=== PATIENT | male | born 2000 | race Caucasian/White ===

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

== ENCOUNTER 2025-05-02 02:53 | Emergency (ER) | payer SELFPAY ==
[2025-05-02] VITALS (7 sets, daily range): BP systolic 134–162; BP diastolic 80–107; PULSE 56–101; RESP 16–18; TEMP 36.6–37; O2SAT 96–99; BMI 33.2
--- NOTE | 2025-05-02 02:59 | XR_ITS ---
PROCEDURE INFORMATION: Exam: XR Chest Exam date and time: 05/02/2025 2:55 AM Age: 25 years old Clinical indication: Other: Chest pain; Additional info: 2d cp TECHNIQUE: Imaging protocol: Radiologic exam of the chest. Views: 2 views. COMPARISON: No relevant prior studies available. FINDINGS: Lungs: Unremarkable. No consolidation. Pleural spaces: Unremarkable. No pleural effusion. No pneumothorax. Heart/Mediastinum: Unremarkable. No cardiomegaly. Bones/joints: Unremarkable. IMPRESSION: No acute findings.
--- NOTE | 2025-05-02 02:59 | ECG_ITS ---
APPROVED REPORT Exam: Resting ECG HR:77 bpm ECG Measurements Heart Rate 77 AXES VT 152 P 48 QRSd 91 QRS -4 QT 346 T 19 QTc 378 Conclusion SINUS RHYTHM VOLTAGE CRITERIA FOR LVH [MEETS CRITERIA IN ONE OF: R(aVL), S(V1), R(V5), R(V5/V6)+S(V1)] No STEMI Electronically signed by : LENY PASCUAL, 05/03/2025 02:54:57
--- NOTE | 2025-05-02 03:01 | HMH.EDGENADL ---
Discharge Plan Disposition Patient Disposition: Xfer Other Condition: Good Referrals Follow up/Referrals: Provider,MD Rhett [Primary Care Provider, Medical] - See instructions Clinical Impressions Clinical Impression: Suicidal ideations, Intentional ibuprofen overdose Stand Alone Forms Stand Alone Forms: Transfer Record - ED Print Language Print Language: Upper Sorbian Discharge ED Provider: Leesa High General Adult HPI <Leesa High MD - Last Filed: 05/02/25 06:56> General Chief complaint: Psychiatric Symptoms Stated complaint: SI Time Seen by Provider: 05/02/25 02:55 History of Present Illness HPI narrative: 25-year-old male who reports no history of previous inpatient psych treatment presents to the ER for suicidal ideation and attempt at self-harm. Patient reports recent break-up with his girlfriend and loss of a job. Patient reports he was feeling depressed and like he wanted to kill himself so he took 3 [id number] 200 mg ibuprofen. Patient reports this was all he took. He did have a few shots of alcohol prior to taking the ibuprofen. He is still having suicidal ideation and states he would take pills to kill himself. He does have a history of marijuana use most recently a few days ago. No history of IV drug use reported by the patient. He reports he is having some mild central chest pain but this has been going on for a few days. He has no headache or dizziness, no numbness, tingling, or weakness. No abdominal pain, nausea, vomiting, or diarrhea. No other associated symptoms. He is willing to seek inpatient psychiatry help. Related Data Allergies Allergy/AdvReac Type Severity Reaction Status Date / Time No Known Allergies Allergy Verified 05/02/25 03:20 [facility] <Leesa High MD - Last Filed: 05/02/25 06:56> [facility] Disclaimer: The information contained in this section may have been updated after the patient was seen, as this information can be updated by other users. Social History Smoking Status: Never smoker alcohol intake: current current occupational status: other Travel in the last 8 weeks?: None Have you lived/traveled outside [place] in past 30 days?: No Contact w/someone who lives/traveled outside US past 30 days?: No Exposure to someone with infectious disease in past 14 days?: No Do you have a fever (greater than 100.4 F or 38 C)?: No Have you tested positive for COVID-19?: No Exposed to someone with COVID-19 in past 14 days?: No Do you have a sore throat?: No Do you have a cough?: No Do you have any weakness?: No Do you have any diarrhea?: No Are you experiencing any unusual bleeding?: No Do you have any muscle aches/pain?: No Do you have any abdominal pain?: No Are you experiencing loss of taste or smell?: No <Leesa High MD - Last Filed: 05/02/25 06:56> ROS Obtained: Yes Systems reviewed as appropriate & no additional complaints except as documented Per HPI Physical Exam <Leesa High MD - Last Filed: 05/02/25 06:56> General General appearance: alert and in no apparent distress Head Head exam: atraumatic and normocephalic Eye Eye exam: Present PERRL and EOMI ENT ENT exam: Present mucous membranes moist Neck Neck exam: Present normal inspection and full ROM Chest Chest inspection: Present symmetric chest wall rise and tenderness (Mild midsternal with no traumatic finding) Respiratory Respiratory exam: Present normal lung sounds bilaterally; Absent respiratory distress, wheezes or stridor Cardiovascular Cardiovascular exam: Present regular rate and normal rhythm Abdominal Exam Abdominal exam: Present soft; Absent distention or tenderness Extremities Exam Extremities exam: Present full ROM Neurological Exam Neurological exam: Present alert and oriented X3; Absent motor sensory deficit Psychiatric Psychiatric exam: Present normal affect and suicidal ideation (With plan to take pills); Absent homicidal ideation Skin Skin exam: Present warm and dry Medical Decision Making <Leesa High MD - Last Filed: 05/02/25 06:56> Medical Records Medical records reviewed: Yes I reviewed the patient's medical records. Screening: Per USPSTF and CDC recommendations, given the prevalence of disease in our region, it is our hospital?s policy to screen for HIV and viral Hepatitis for all patients aged 18 and over and those with ongoing risk factors. Javier Inquiry Pt receiving controlled substance: No Vital Signs: 05/02/25 03:15 05/02/25 06:45 05/02/25 07:38 Temperature 98.6 F Temperature Source Oral Pulse Rate 57 L 71 Pulse Rate [Right] 86 Respiratory Rate 18 Blood Pressure 142/80 H 152/86 H Blood Pressure [Right Arm] 162/107 H Blood Pressure Mean [Right Arm] 125 02 Sat by Pulse Oximetry 96 97 97 Oxygen Delivery Method Room Air Room Air 05/02/25 09:42 Temperature Temperature Source Pulse Rate 56 L Pulse Rate [Right] Respiratory Rate Blood Pressure 135/92 H Blood Pressure [Right Arm] Blood Pressure Mean [Right Arm] 02 Sat by Pulse Oximetry 98 Oxygen Delivery Method Lab Data Lab Results 05/02/25 03:45: WBC 10.6, RBC 5.40, Hgb 15.9, Hct 46.6, MCV 86.3, MCH 29.4, MCHC 34.1, RDW 12.8, Plt Count 312, MPV 9.8, Neut % (Auto) 55.2, Lymph % (Auto) 32.6, Pendleton % (Auto) 10.7 H, Eos % (Auto) 0.5, Baso % (Auto) 0.6, Neut # (Auto) 5.9, Lymph # (Auto) 3.5, Pendleton # (Auto) 1.1 H, Eos # (Auto) 0.1, Baso # (Auto) 0.1, Sodium 140, Potassium 4.2, Chloride 107, Carbon Dioxide 25, Anion Gap 12.2, BUN 11, Creatinine 1.00, Estimated Creat Clear 181, Estimated GFR 93, Est GFR ( Amer) 112, Glucose 97, Calcium 9.2, Total Bilirubin 0.8, AST 152 H, ALT 383 H*, Alkaline Phosphatase 113, Troponin I < 0.01, Total Protein 8.1, Albumin 4.7, Globulin 3.4 H, Albumin/Globulin Ratio 1.4, Salicylates < 1.0 L, Acetaminophen < 10 L, Plasma/Serum Alcohol < 10, Monoscreen Negative 05/02/25 06:24: AST 122 H, ALT 325 H* 05/02/25 06:47: Total Creatine Kinase 103 05/02/25 07:34: Urine Color Yellow, Urine Appearance Clear, Urine pH 7.0, Ur Specific Dewey <= 1.005, Urine Protein Negative, Urine Glucose (UA) Negative, Urine Ketones Negative, Urine Blood 1+ A, Urine Nitrate Negative, Urine Bilirubin Negative, Urine Urobilinogen 1.0, Ur Leukocyte Esterase Negative, Urine RBC Occasional, Urine WBC None, Ur Squamous Epith Cells Occasional, Urine Bacteria Trace, Urine Opiates Screen Negative, Urine Methadone Screen Negative, Ur Barbituates Screen Negative, Ur Phencyclidine Scrn Negative, Ur Amphetamines Screen Negative, U Benzodiazepines Scrn Negative, Urine Cocaine Screen Negative, U Marijuana (THC) Screen Positive H 05/02/25 03:45 05/02/25 03:45 Orders (Tests/Meds): ED MEDICATIONS Generic Name Dose Route Start Last Admin Trade Name Freq PRN Reason Stop Dose Admin Sodium Chloride 10 ml 05/02/25 07:13 05/02/25 07:18 Sodium Chloride 0.9% 10ml Syr (Rad Only) IV 06/01/25 07:12 10 ml NEEDED PRN Administration Maintain IV Site Discontinued Medications Generic Name Dose Route Start Last Admin Trade Name Freq PRN Reason Stop Dose Admin Lactated Ringer's 1,000 mls @ 999 mls/hr 05/02/25 05:18 05/02/25 05:25 Lactated Ringer's 1000 Ml Bag IV 05/02/25 06:18 999 mls/hr .Q1H1M ONE Administration Iopamidol 75 ml 05/02/25 07:13 05/02/25 07:18 Iopamidol-370 (76%);100ml Bottle IV 05/02/25 07:14 75 ml ONCE ONE Administration ORDERS Category Date Time Status CT abdomen pelvis w con Stat Cat Scan 05/02/25 06:53 Completed CXR 2 view (NOT portable) [XR chest 2V] Stat Exams 05/02/25 02:59 Completed ALT [Alanine Aminotransferase] Timed Lab 05/02/25 06:24 Completed AST [Aspartate Amino Transferase] Timed Lab 05/02/25 06:24 Completed Acetaminophen Stat Lab 05/02/25 03:45 Completed CBC w/Auto Diff [Complete Blood Count Auto Diff] Stat Lab 05/02/25 03:45 Completed CK [Creatine Kinase] Stat Lab 05/02/25 06:47 Completed CMP [Comprehensive Metabolic Panel] Stat Lab 05/02/25 03:45 Completed Ethanol [Ethyl Alcohol] Stat Lab 05/02/25 03:45 Completed Hepatitis Panel Stat Lab 05/02/25 03:45 Received Monoscreen (Rapid) Stat Lab 05/02/25 03:45 Completed Salicylate Stat Lab 05/02/25 03:45 Completed Trop I [Troponin I] Stat Lab 05/02/25 03:45 Completed UDS [Drug Screen,Urine] Stat Lab 05/02/25 07:34 Completed Urinalysis and Microscopic Stat Lab 05/02/25 07:34 Completed Medical Decision Narrative: In summary, this 25-year-old male presents to the emergency department today with suicidal ideation, attempt at self-harm by taking 3 ibuprofen. On initial evaluation patient is hemodynamically stable, afebrile, well-appearing, patient is very mild anterior chest wall tenderness with no traumatic findings, cardiopulmonary exam benign, patient does report suicidal ideation with a plan to take pills, remainder of exam benign. Differential diagnosis includes but is not limited to depression, anxiety, suicidal ideation, self-harm attempt, coingestion, regarding the chest pain could be ACS, considered PE but patient is PERC negative, considered musculoskeletal etiology, esophageal spasm, pneumothorax. Ruling out the most morbid conditions drove my assessment. I considered calling poison control but patient reports only taking three 200 mg ibuprofen which would be a normal therapeutic dose for a patient of this age and size so without side effect or other concerns or report of coingestion at this time, will not contact poison control unless something otherwise concerning shows up on UDS or labs. Based on these concerns, I ordered serum labs, EKG, chest x-ray, urine studies including UDS. ECG personally interpreted demonstrates normal sinus rhythm, rate 77, normal axis, normal CT and QTc, no STEMI. Labs personally reviewed demonstrate no leukocytosis or anemia, normal platelets, CMP demonstrates no actionable electrolyte abnormalities, good kidney function, patient has elevated AST and notably elevated ALT. AST is 152, ALT is 383, alk phos normal. Patient has no hyperbilirubinemia, on reassessment I asked him specifically if he was having any abdominal pain and he states he occasionally has left-sided abdominal pain but has not had any in the last few days, he has no right sided abdominal pain, I reexamined his abdomen again and he has no tenderness, rebound, or guarding. No jaundice. I do not believe patient requires any advanced imaging at this time but I do not have a specific reason for his liver enzyme elevation. This is not in the typical pattern of alcohol abuse either and patient reports only drinking a couple shots of liquor on the weekends which is what he reports doing prior to arrival. Salicylates and acetaminophen levels are undetectable which is also reassuring. He states he does not take Tylenol. I discussed this case with Dr. Cueva at regarding patient's abnormal LFTs without other associated symptoms or abnormalities and my concern that this would exclude him from being able to go to inpatient psych. He recommended giving the patient a liter of IV fluids and rechecking LFTs in 2 hours. IV fluids are being administered, recheck LFT has been ordered. He recommends if LFTs remain elevated to then have right upper quadrant ultrasound or CT imaging performed to evaluate for other cause. If all of these are negative then should be able to be cleared for inpatient psych. Repeat LFTs are still elevated, specifically AST is 325. With this elevation I ordered CT abdomen pelvis to rule out other acute intra-abdominal pathologies that could be contributing though he still has a benign exam. Patient handed off to Dr. Cordova in stable condition pending CT imaging for disposition. <Juan Cordova, DO - Last Filed: 05/02/25 11:15> Vital Signs: 05/02/25 03:15 05/02/25 06:45 05/02/25 07:38 Temperature 98.6 F Temperature Source Oral Pulse Rate 57 L 71 Pulse Rate [Right] 86 Respiratory Rate 18 Blood Pressure 142/80 H 152/86 H Blood Pressure [Right Arm] 162/107 H Blood Pressure Mean [Right Arm] 125 02 Sat by Pulse Oximetry 96 97 97 Oxygen Delivery Method Room Air Room Air 05/02/25 09:42 Temperature Temperature Source Pulse Rate 56 L Pulse Rate [Right] Respiratory Rate Blood Pressure 135/92 H Blood Pressure [Right Arm] Blood Pressure Mean [Right Arm] 02 Sat by Pulse Oximetry 98 Oxygen Delivery Method Lab Data Lab Results 05/02/25 03:45: WBC 10.6, RBC 5.40, Hgb 15.9, Hct 46.6, MCV 86.3, MCH 29.4, MCHC 34.1, RDW 12.8, Plt Count 312, MPV 9.8, Neut % (Auto) 55.2, Lymph % (Auto) 32.6, Pendleton % (Auto) 10.7 H, Eos % (Auto) 0.5, Baso % (Auto) 0.6, Neut # (Auto) 5.9, Lymph # (Auto) 3.5, Pendleton # (Auto) 1.1 H, Eos # (Auto) 0.1, Baso # (Auto) 0.1, Sodium 140, Potassium 4.2, Chloride 107, Carbon Dioxide 25, Anion Gap 12.2, BUN 11, Creatinine 1.00, Estimated Creat Clear 181, Estimated GFR 93, Est GFR ( Amer) 112, Glucose 97, Calcium 9.2, Total Bilirubin 0.8, AST 152 H, ALT 383 H*, Alkaline Phosphatase 113, Troponin I < 0.01, Total Protein 8.1, Albumin 4.7, Globulin 3.4 H, Albumin/Globulin Ratio 1.4, Salicylates < 1.0 L, Acetaminophen < 10 L, Plasma/Serum Alcohol < 10, Monoscreen Negative 05/02/25 06:24: AST 122 H, ALT 325 H* 05/02/25 06:47: Total Creatine Kinase 103 05/02/25 07:34: Urine Color Yellow, Urine Appearance Clear, Urine pH 7.0, Ur Specific Dewey <= 1.005, Urine Protein Negative, Urine Glucose (UA) Negative, Urine Ketones Negative, Urine Blood 1+ A, Urine Nitrate Negative, Urine Bilirubin Negative, Urine Urobilinogen 1.0, Ur Leukocyte Esterase Negative, Urine RBC Occasional, Urine WBC None, Ur Squamous Epith Cells Occasional, Urine Bacteria Trace, Urine Opiates Screen Negative, Urine Methadone Screen Negative, Ur Barbituates Screen Negative, Ur Phencyclidine Scrn Negative, Ur Amphetamines Screen Negative, U Benzodiazepines Scrn Negative, Urine Cocaine Screen Negative, U Marijuana (THC) Screen Positive H Orders (Tests/Meds): ED MEDICATIONS Generic Name Dose Route Start Last Admin Trade Name Freq PRN Reason Stop Dose Admin Sodium Chloride 10 ml 05/02/25 07:13 05/02/25 07:18 Sodium Chloride 0.9% 10ml Syr (Rad Only) IV 06/01/25 07:12 10 ml NEEDED PRN Administration Maintain IV Site Discontinued Medications Generic Name Dose Route Start Last Admin Trade Name Freq PRN Reason Stop Dose Admin Lactated Ringer's 1,000 mls @ 999 mls/hr 05/02/25 05:18 05/02/25 05:25 Lactated Ringer's 1000 Ml Bag IV 05/02/25 06:18 999 mls/hr .Q1H1M ONE Administration Iopamidol 75 ml 05/02/25 07:13 05/02/25 07:18 Iopamidol-370 (76%);100ml Bottle IV 05/02/25 07:14 75 ml ONCE ONE Administration ORDERS Category Date Time Status CT abdomen pelvis w con Stat Cat Scan 05/02/25 06:53 Completed CXR 2 view (NOT portable) [XR chest 2V] Stat Exams 05/02/25 02:59 Completed ALT [Alanine Aminotransferase] Timed Lab 05/02/25 06:24 Completed AST [Aspartate Amino Transferase] Timed Lab 05/02/25 06:24 Completed Acetaminophen Stat Lab 05/02/25 03:45 Completed CBC w/Auto Diff [Complete Blood Count Auto Diff] Stat Lab 05/02/25 03:45 Completed CK [Creatine Kinase] Stat Lab 05/02/25 06:47 Completed CMP [Comprehensive Metabolic Panel] Stat Lab 05/02/25 03:45 Completed Ethanol [Ethyl Alcohol] Stat Lab 05/02/25 03:45 Completed Hepatitis Panel Stat Lab 05/02/25 03:45 Received Monoscreen (Rapid) Stat Lab 05/02/25 03:45 Completed Salicylate Stat Lab 05/02/25 03:45 Completed Trop I [Troponin I] Stat Lab 05/02/25 03:45 Completed UDS [Drug Screen,Urine] Stat Lab 05/02/25 07:34 Completed Urinalysis and Microscopic Stat Lab 05/02/25 07:34 Completed Medical Decision Narrative: In summary, this 25-year-old male presents to the emergency department today with suicidal ideation, attempt at self-harm by taking 3 ibuprofen. On initial evaluation patient is hemodynamically stable, afebrile, well-appearing, patient is very mild anterior chest wall tenderness with no traumatic findings, cardiopulmonary exam benign, patient does report suicidal ideation with a plan to take pills, remainder of exam benign. Differential diagnosis includes but is not limited to depression, anxiety, suicidal ideation, self-harm attempt, coingestion, regarding the chest pain could be ACS, considered PE but patient is PERC negative, considered musculoskeletal etiology, esophageal spasm, pneumothorax. Ruling out the most morbid conditions drove my assessment. I considered calling poison control but patient reports only taking three 200 mg ibuprofen which would be a normal therapeutic dose for a patient of this age and size so without side effect or other concerns or report of coingestion at this time, will not contact poison control unless something otherwise concerning shows up on UDS or labs. Based on these concerns, I ordered serum labs, EKG, chest x-ray, urine studies including UDS. ECG personally interpreted demonstrates normal sinus rhythm, rate 77, normal axis, normal CT and QTc, no STEMI. Labs personally reviewed demonstrate no leukocytosis or anemia, normal platelets, CMP demonstrates no actionable electrolyte abnormalities, good kidney function, patient has elevated AST and notably elevated ALT. AST is 152, ALT is 383, alk phos normal. Patient has no hyperbilirubinemia, on reassessment I asked him specifically if he was having any abdominal pain and he states he occasionally has left-sided abdominal pain but has not had any in the last few days, he has no right sided abdominal pain, I reexamined his abdomen again and he has no tenderness, rebound, or guarding. No jaundice. I do not believe patient requires any advanced imaging at this time but I do not have a specific reason for his liver enzyme elevation. This is not in the typical pattern of alcohol abuse either and patient reports only drinking a couple shots of liquor on the weekends which is what he reports doing prior to arrival. Salicylates and acetaminophen levels are undetectable which is also reassuring. He states he does not take Tylenol. I discussed this case with Dr. Cueva at regarding patient's abnormal LFTs without other associated symptoms or abnormalities and my concern that this would exclude him from being able to go to inpatient psych. He recommended giving the patient a liter of IV fluids and rechecking LFTs in 2 hours. IV fluids are being administered, recheck LFT has been ordered. He recommends if LFTs remain elevated to then have right upper quadrant ultrasound or CT imaging performed to evaluate for other cause. If all of these are negative then should be able to be cleared for inpatient psych. Repeat LFTs are still elevated, specifically ALT is 325. With this elevation I ordered CT abdomen pelvis to rule out other acute intra-abdominal pathologies that could be contributing though he still has a benign exam. Patient handed off to Dr. Cordova in stable condition pending CT imaging for disposition. Juan Cordova DO At the time of shift change this patient's CT scan was pending. The patient does not report any toxic ingestions that would cause a transaminitis. His Tylenol level is also normal so this would also not account for his transaminitis. We had spoken with the concrete craftsman at [facility], Dr. Cueva, who felt that it would be best to proceed with a CT scan of the abdomen pelvis. We also felt that this was reasonable. I followed up on the CT scan of the abdomen pelvis and it showed no acute pathology. It did show that there is fatty infiltration of the liver which fits clinically with the patient's abdominal obesity. I do feel that this likely is accounting for his transaminitis although, I do not have any prior blood work to compare this to to see if this is a chronic issue. I would favor fatty liver disease over a toxic ingestion at this time as he seems pretty reliable that he only took 3 pills of ibuprofen. Given these findings I do feel that he is medically cleared and stable for psychiatric care. I had an interactive discussion with the [facility] who graciously agreed to accept the patient for transfer to [facility]. Dr. Hernandez is the accepting physician. Patient was transferred in stable condition via EMS Critical Care <Leesa High MD - Last Filed: 05/02/25 06:56> Critical Care Time Critical Care Time: No
--- OUTSIDE RECORDS SUMMARY | 2025-05-02 03:09 | XMS_ITS | Clinical Summary ---
Author Organization [facility] Address [address] 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 16.5 g 0 Active Additional Information Patient not taking.Reason: Therapy Completed, Informant: Self/Patient, Reported on 04/04/2024 cetirizine (ZYRTEC) 10 mg Oral Tablet, ChewableIndicat ions:Epistaxis Take 1 Tab by mouth daily. 30 Tab 0 Active Additional Information Patient not taking.Reason: Therapy Completed, Informant: Self/Patient, Reported on 04/04/2024 Active Problems Problem Noted Date Diagnosed Date Seasonal allergies 06/04/2013 Immunizations Immunization Administration Dates Next Due DTaP 03/11/2006, 3,2002,06/15,2002 HPV 9 Valent 12/16/2018,05/22/2018 Hepatitis A, Ped/Adol, 2 Dose 12/16/2018, 018 Hepatitis B, Unspecified Formulation 03/25/2003, 2002,2002 HiB, Unspecified Formulation 03/25/2003,06/15/20 02,2002 IPV 03/11/2006, 3,2002,03/16 LAST MANUFACTURED 2011-Pneum ococcal Conjugate 7 Valent 03/11/2006 MMR 03/11/2006,05/27/2003 Meningococcal Conjugate 05/14/2018,05/12/2013 Meningococcal MCV4, Unspecif ied Formulation 05/12/2013 Tdap 07/10/2013 Varicella 05/12/2013,05/27/2003 Surgical History Surgery Date Site/Laterality Comments CIRCUMCISION Medical History Medical History Date Comments Seasonal allergies Bleeding nose Family History Medical History Relation Name Comments Hypertension Father Diabetes Maternal Grandfather Elevated Lipids Maternal Grandfather Hypertension Maternal Grandfather Allergies Mother Heart Disease Mother arrthymia Diabetes Paternal Grandfather Elevated Lipids Paternal Grandfather Hypertension Paternal Grandfather Relation Name Status Comments Father Alive Maternal Grandfather Alive Maternal Grandmother Alive Mother Alive Paternal Grandfather Alive Paternal Grandmother Alive Sister 1 Alive Sister 2 Alive Social History Tobacco Use Types Packs/Day Years Used Date Smoking Tobacco: Never Smokeless Tobacco: Never Tobacco Cessation:Counseling Given: Not Answered Comments:Mom smokes inside Alcohol Use Standard Drinks/Week Comments No 0 (1 standard drink = 0.6 oz pur e alcohol) PHQ-2 Answer Date Recorded PHQ-2 Total Score 0 06/20/2021 Sexually Active Control Partners Comments Never Sex and Gender Information Value Date Recorded Sex Assigned at Not on file Legal Sex Male 3:31 AM EDT Gender Identity Not on file Sexual Orientation Not on file History Length Weight Head Circum Date/Time Gestation Age D/C Weight APGARs Delivery Method Feeding 2002 Vaginal, Spontaneous Obstetrics History Last Filed Vital Signs Vital Sign Reading Time Taken Comments Blood Pressure 128/74 04/04/2024 5:21 PM EDT Pulse 102 04/04/2024 5:21 PM EDT Temperature 36.7 C (98.1 F) 04/04/2024 5:21 PM EDT Respiratory Rate 14 04/04/2024 5:21 PM EDT Oxygen Saturation 99% 04/04/2024 5:21 PM EDT Inhaled Oxygen Concentration - - Weight 111.7 kg (246 lb 3.2 oz) 04/04/2024 5:21 PM EDT Height 180.3 cm (5' 11 ) 04/04/2024 5:21 PM EDT Body Mass Index 34.34 04/04/2024 5:21 PM EDT Plan of Treatment Health Maintenance Due Date Last Done Comments Annual Wellness Exam 2005 Meningococcal B Vaccine (1 of 2 - Standard) 2018 HPV (3 - Male 3-dose series) 03/10/2019 12/16/2018, 05/22/2018 DTaP/TDaP/Td (7 - Td or Tdap) 07/10/2023 07/10/2013, 03/11/2006, 03/25/2003, Additional history exists COVID-19 Vaccine ( season) 2024 Influenza Vaccine (#1) 2025 Hepatitis B Vaccine Completed 03/25/2003, 2002, 2002 Pneumococcal Vaccine 0-49 Aged Out 03/11/2006 No longer eligible based on patient's age to complete this topic Goals Goal Patient Goal Type Associated Problems Recent Progress Patient-Stated? 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
--- NOTE | 2025-05-02 03:48 | PC.NURSE ---
PT changed into plastic gown. Belongings put into bag, Shorts, Shirt, 2 socks, phone, wallet.
[2025-05-02 03:52] LABS: Hematocrit 46.6 % (42.0-52.0); Hemoglobin 15.9 g/dL (14.1-18.0); Immature Granulocytes % 0.4 %; Mean Corpuscular HGB Conc 34.1 g/dL (31.8-35.4); Mean Corpuscular Hemoglobin 29.4 pg (27.0-31.2); Mean Corpuscular Volume 86.3 fl (80-94); Nucleated Red Blood Cells % 0 %; Platelet Count 312 K/mm3 (142-424); Red Blood Count 5.40 M/mm3 (4.60-6.20); Red Cell Distribution Width-SD 39.8 fL; White Blood Count 10.6 K/mm3 (4.8-10.8)
[2025-05-02 03:57] LABS: Albumin Level 4.7 g/dl (3.5-5.0); Chloride 107 mmol/L (98-107); Sodium 140 mmol/L (136-145)
[2025-05-02 03:58] LABS: Potassium 4.2 mmoL/L (3.5-5.1)
[2025-05-02 04:00] LABS: Alanine Aminotransferase 383 U/L (12-78); Albumin/Globulin Ratio 1.4 (1.1-1.8); Alkaline Phosphatase 113 U/L (38-126); Anion Gap 12.2 mEq/L (5-15); Aspartate Amino Transferase 152 U/L (17-59); Bilirubin,Total 0.8 mg/dl (0.2-1.3); Blood Urea Nitrogen 11 mg/dl (9-20); Carbon Dioxide 25 mmol/L (22.0-30.0); Creatinine Clearance Estimated 181 mL/min (50-200); Creatinine,Serum 1.00 mg/dl (0.66-1.25); Estimated Glomerular Filt Rate 93 ml/min (>60); GFR (African American) 112 ML/MIN (>60); Globulin 3.4 g/dL (1.3-3.2); Total Protein,Serum 8.1 g/dl (6.3-8.2)
[2025-05-02 04:01] LABS: Calcium 9.2 mg/dl (8.4-10.2); Glucose 97 mg/dl (74-100)
[2025-05-02 04:03] LABS: Acetaminophen < 10 ug/ml (10-30); Salicylate < 1.0 mg/dL (2.0-20.0)
[2025-05-02 04:13] LABS: Troponin I < 0.01 ng/ml (0.00-0.034)
--- NOTE | 2025-05-02 05:01 | PC.NURSE ---
PT provided urinal and notified of UA needed. Unable to provide sample at this time.
[2025-05-02] MEDS: LACTATED RINGERS 1000ML 1,000 ML 999 ML IV (05:25)
[2025-05-02 06:44] LABS: Alanine Aminotransferase 325 U/L (12-78); Aspartate Amino Transferase 122 U/L (17-59)
--- NOTE | 2025-05-02 06:53 | CT_ITS ---
PROCEDURE INFORMATION: Exam: CT Abdomen And Pelvis With Contrast Exam date and time: 05/02/2025 7:09 AM Age: 25 years old Clinical indication: Abnormal findings; Abnormal lab test; Other: Elevated lfts without cause TECHNIQUE: Imaging protocol: Computed tomography of the abdomen and pelvis with contrast. Radiation optimization: All CT scans at this facility use at least one of these dose optimization techniques: automated exposure control; mA and/or kV adjustment per patient size (includes targeted exams where dose is matched to clinical indication); or iterative reconstruction. Contrast material: ISOVUE; Contrast volume: 75 ml; Contrast route: IV; COMPARISON: CR XR CHEST 2V 05/02/2025 2:55 AM FINDINGS: Liver: Fatty infiltration of the liver. Gallbladder and biliary ducts: Normal. No calcified stones. No ductal dilation. Pancreas: Normal. No ductal dilation. Spleen: Normal. No splenomegaly. Adrenal glands: Normal. No mass. Kidneys and ureters: Normal. No hydronephrosis. Stomach and bowel: Unremarkable. No obstruction. No mucosal thickening. Appendix: No evidence of appendicitis. Intraperitoneal space: Unremarkable. No free air. No significant fluid collection. Vasculature: Unremarkable. No abdominal aortic aneurysm. Lymph nodes: Unremarkable. No enlarged lymph nodes. Urinary bladder: Unremarkable as visualized. Reproductive: Unremarkable as visualized. Bones/joints: Unremarkable. No acute fracture. Soft tissues: Gynecomastia. IMPRESSION: 1. Fatty infiltration of the liver. 2. Gynecomastia.
[2025-05-02 07:05] LABS: Monoscreen (Rapid) Negative (Negative)
[2025-05-02 07:12] LABS: Creatine Kinase 103 U/L (55-170)
[2025-05-02] MEDS: SODIUM CHLORIDE 0.9% 10ML SYR (RAD ONLY) 10 ML IV (07:18)
[2025-05-02] MEDS: IOPAMIDOL-370 (76%);100ML BOTTLE 75 ML IV (07:18)
[2025-05-02 07:39] LABS: Microscopic, Urine URINE MICROSCOPIC (MICROSCOPIC)
[2025-05-02 07:44] LABS: Bilirubin,Urine Negative (Negative); Color,Urine YELLOW (Yellow); Glucose,Urine (UA) Negative (Negative); Ketones,Urine Negative (Negative); Leukocyte Esterase,Urine Negative (Negative); PH,Urine 7.0 (5.0-8.5); Protein,Urine Negative (Negative); Specific Gravity, Urine <= 1.005 (1.005-1.030); Urobilinogen,Urine 1.0 EU/dl (0.2)
[2025-05-02 07:53] LABS: Bacteria,Urine Trace /lpf; RBC,Urine Occasional #/hpf (0-3); Squamous Epithelial Cell,Urine Occasional #/hpf (0-5)
[2025-05-02 07:56] LABS: Amphetamine/Metha Screen,Urine Negative ng/ml (<1000)
[2025-05-02 07:57] LABS: Barbiturates Screen,Urine Negative ng/ml (<200)
[2025-05-02 07:58] LABS: Benzodiazepines Screen,Urine Negative ng/ml (<200)
[2025-05-02 07:59] LABS: Methadone Screen,Urine Negative ng/ml (<300)
[2025-05-02 08:00] LABS: Opiate Screen,Urine Negative ng/ml (<300)
[2025-05-02 08:01] LABS: Phencyclidine Screen,Urine Negative ng/ml (<25)
--- NOTE | 2025-05-02 09:06 | PC.NURSE ---
Asked patient if he needed naything he stated that he was okay at this time.
--- NOTE | 2025-05-02 09:23 | PC.NURSE ---
I called and spoke with transfer center for pts transfer for suicide ideation. casino shift manager started the process for pt, but requested repeat labs. Those were performed. MD lee on phone with dr cook from
--- NOTE | 2025-05-02 09:54 | PC.NURSE ---
report given to michael cheema at [facility] at
--- NOTE | 2025-05-02 09:58 | PC.NURSE ---
attempted to call EMS for transfer to [facility]. No one answered. will attempted to call back later.
--- NOTE | 2025-05-02 10:01 | PC.NURSE ---
Patient asked if he could have his phone to call and let his parents know that he was here and what was going on. I told him that i would ask. Adrianna Montiel RN stated that she didnt care if he had his phone to call his parents. I got in his patient belongings bag and grabbed his phone for him which ended up being . it is on the radiation protection specialist out at the desk right now and once it charges RN Adrianna Montiel will bring it back for him to call.
== END 2025-05-02 13:20 | disposition other institution (70) ==
PROVIDERS: Student in an Organized Health Care Education/Training Program; Emergency Provider Emergency Medicine
DX: T39.312A Poisoning by propionic acid derivatives, intentional self-harm, initial encounter (principal); R07.89 Other chest pain
CPT/HCPCS: 71046; 74177; 80053; 80074; 80307; 80320; 80329; 81001; 82550; 84450; 84460; 84484; 85025; 86318; 93005; 96360; 99285; J7120; Q9967

== ENCOUNTER 2025-05-09 02:27 | Emergency (ER) | payer SELFPAY ==
--- OUTSIDE RECORDS SUMMARY | 2025-05-02 14:14 | XMS_ITS | Encounter Summary ---
Author Organization Healthcare Address [address] 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 Phone Pcp, No Primary Care Provider Unavailabl e Reason for Visit * Reason Comments Depression Anxiety Encounter Details Date Type Department Care Team (Latest Contact Info) Description 05/02/2025 2:14 PM EDT - 05/03/2025 1:02 PM EDT Hospital Encounter [facility] [address] [place] [address] Krunal Broderick MD [address] [place] [address] Adjustment disorder, unspecified type (Primary Dx) Discharge Disposition: Home or Self Care Social History Tobacco Use Types Packs/Day Years Used Date Smoking Tobacco: Never Smokeless Tobacco: Never Tobacco Cessation:Counseling Given: Not Answered Alcohol Use Standard Drinks/Week Comments Yes 0 (1 standard drink = 0.6 oz pure alcohol) weekends, 3-5 shots over the entire weekend, and sometimes 1/2 - 1 bottle vodka as a binge event over a weekend, maybe once monthly. PHQ-2 Answer Date Recorded Patient Health Questionnaire-2 Score 4 05/02/2025 PHQ-9 Answer Date Recorded Patient Health Questionnaire-9 Score 18 05/02/2025 CAGE ASSESSMENT Answer Date Recorded Cage unable to access Not on file 05/02/2025 Maximum number of drinks you had on a given occasion in the last month? 5 or more drinks 05/02/2025 How many alcoholic Beverages do you typically drink in a week? 8 - 14 per week 05/02/2025 Have you ever felt you shoul d CUT down on your drinking? 1 05/02/2025 Have you been ANNOYED by peo ple criticizing your drinking? 0 05/02/2025 Have you felt GUILTY about your drinking? 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 0 05/02/2025 CAGE Questionnaire Score 2 Sex and Gender Information Value Date Recorded Sex Assigned at Not on file Legal Sex Male 5:10 AM EDT Gender Identity Not on file Sexual Orientation Not on file documented as of this encounter Last Filed Vital Signs Vital Sign Reading Time Taken Comments Blood Pressure 152/98 05/02/2025 2:20 PM EDT Pulse 69 05/02/2025 2:20 PM EDT Temperature - - Respiratory Rate 20 05/02/2025 6:44 PM EDT Oxygen Saturation 97% 05/02/2025 2:20 PM EDT Inhaled Oxygen Concentration - - Weight 120 kg (264 lb 8.8 oz) 05/02/2025 3:00 PM EDT Height 182.9 cm (6') 05/02/2025 3:00 PM EDT Body Mass Index 35.88 05/02/2025 3:00 PM EDT documented in this encounter Functional Status * Over the past 2 weeks, how often have you been bothered by any of the following problems? Question Answer Date of Assessment Author Patient Health Questionnaire -2 Score 4 05/02/2025 2:40 PM EDT Radha Navas * Calculated C-SSRS Risk Score (Lifetime/Recent) Answer Date of Assessment Author Low Risk 05/02/2025 3:23 PM EDT Rogers sOorio RN * If you checked off any problems on this questionnaire, Question Answer Date of Assessment Author How difficult have these problems made it for you to do your work, take care of things at home, or get along with other people? Very difficult 05/02/2025 2:40 PM EDT Radha Navas * Suicidal Ideation Question Answer Date of Assessment Author 1. Wish to be (Lifetime) Yes 05/02/2025 3:23 PM EDT Evelin Osorio, RN 2. Non-Specific Active Suici arabella Thoughts (Lifetime) Yes 05/02/2025 3:23 PM EDT Evelin Osorio RN 3. Active Suicidal Ideation with any Methods (Not Plan) Without Intent to Act (Lifetime) No 05/02/2025 3:23 PM EDT Jer Osorio RN 4. Active Suicidal Ideation with Some Intent to Act, Without Specific Plan (Lifetime) No 05/02/2025 3:23 PM EDT Jer Osorio RN 5. Active Suicidal Ideation with Specific Plan and Intent (Lifetime) No 05/02/2025 3:23 PM EDT Evelin Osorio RN 1. Wish to be (Past 1 Month) Yes 05/02/2025 3:23 PM EDT Evelin Osorio RN 2. Non-Specific Active Suici arabella Thoughts (Past 1 Month) Yes 05/02/2025 3:23 PM EDT Alton Osorio RN 3. Active Suicidal Ideation with any Methods (Not Plan) Without Intent to Act (Past 1 Month) No 05/02/2025 3:23 PM EDT Evelin Osorio RN 4. Active Suicidal Ideation with Some Intent to Act, Without Specific Plan (Past 1 Month) No 05/02/2025 3:23 PM EDT Evelin Osorio RN 5. Active Suicidal Ideation with Specific Plan and Intent (Past 1 Month) No 05/02/2025 3:23 PM EDT Evelin Osorio RN * Intensity of Ideation Question Answer Date of Assessment Author Most Severe Ideation Rating (Lifetime) 5 05/02/2025 3:23 PM EDELT Evelin Osorio RN Frequency (Lifetime) 5 05/02/2025 3:23 PM E DT Evelin Osorio RN Duration (Lifetime) 3 05/02/2025 3:23 PM ED T Evelin Osorio RN Controllability (Lifetime) 5 05/02/2025 3:2 3 PM EDT Evelin Osorio RN Deterrents (Lifetime) 0 05/02/2025 3:23 PM EDELT Evelin Osorio RN Reasons for Ideation (Lifetime) 0 3:23 PM EDELT Evelin Osorio RN Most Severe Ideation Rating (Past 1 Month) 5 05/02/2025 3:23 PM EDT Evelin Osorio RN Frequency (Past 1 Month) 5 05/02/2025 3:23 PM EDT Evelin Osorio RN Duration (Past 1 Month) 3 05/02/2025 3:23 P M EDT Evelin Osorio RN Controllability (Past 1 Month) 5 05/02/2025 3:23 PM EDELT Evelin Osorio RN Deterrents (Past 1 Month) 0 05/02/2025 3:23 PM Evelin Crawford RN Reasons for Ideation (Past 1 Month) 0 05/02/2025 3:23 PM EDT Evelin Osorio RN * Suicidal Behavior Question Answer Date of Assessment Author Actual Attempt (Lifetime) No 05/02/2025 3:23 PM Evelin Crawford RN Has subject engaged in non-suicidal self-injurious behavior? (Lifetime) No 05/02/2025 3:23 PM Evelin Crawford RN Interrupted Attempts (Lifetime) No 3:23 PM Evelin Crawford RN Aborted or Self-Interrupted Attempt (Lifetime) No 05/02/2025 3:23 PM Evelin Crawford RN Preparatory Acts or Behavior (Lifetime) No 05/02/2025 3:23 PM EDT Evelin Osorio RN * Over the past 2 weeks, how often have you been bothered by any of the following problems? Question Answer Date of Assessment Author Little interest or pleasure in doing things More than half the days 05/02/2025 2:40 PM Michael Burden Feeling down, depressed, or hopeless More than half the days 05/02/2025 2:40 PM EDELT Michael Navas Trouble falling or staying asleep, or sleeping too much Nearly every day 05/02/2025 2:40 PM Michael Burden Feeling tired or having little energy Nearly every day 05/02/2025 2:40 PM EDELT Michael Navas Poor appetite or overeating Nearly every day 05/02/2025 2:40 PM EDELT Michael Navas Feeling bad about yourself - or that you are a failure or have let yourself or your family down More than half the days 05/02/2025 2:40 PM EDELT Michael Navas Trouble concentrating on things, such as reading the newspaper or watching television Several days 05/02/2025 2:40 PM EDT Michael Navas Moving or speaking so slowly that other people could have noticed? Or the opposite - being so fidgety or restless that you have been moving around a lot more than usual. Several days 05/02/2025 2:40 PM EDT Michael Navas Thoughts that you would be better off or hurting yourself in some way Several days 05/02/2025 2:40 PM EDT Michael Navas Patient Health Questionnaire-9 Score 18 05/02/2025 2:40 PM EDT Michael Navas * Question Answer Date of Assessment Author 6. Suicidal Behavior (Lifetime) No 2:35 PM EDT Michael Navas documented as of this encounter Medications at Time of Discharge FLUoxetine (PROzac) 10 MG capsule Take 1 capsule by mouth daily. 30 capsule 05/03/2025 documented as of this encounter Miscellaneous Notes * Shanika Aguilar RN - 05/03/2025 9:34 AM EDT Images from the original note were not included. [id number] Fluoxetine IMPORTANT WARNING: A small number of children, teenagers, and young adults (up to 24 years of age) who took antidepressants ('mood elevators') such as fluoxetine during clinical studies became suicidal (thinking about harming or killing oneself or planning or trying to do so). Children, teenagers, and young adults who take antidepressants to treat depression or other mental illnesses may be more likely to become suicidal than children, teenagers, and young adults who do not take antidepressants to treat these conditions. However, experts are not sure about how great this risk is and how much it should be considered in deciding whether a child or teenager should take an antidepressant. You should know that your mental health may change in unexpected ways when you take fluoxetine or other antidepressants even if you are an adult over 24 years of age. You may become suicidal, especially at the beginning of your treatment and any time that your dose is increased or decreased. You, your family, or your caregiver should call your doctor right away if you experience any of the following symptoms: new or worsening depression; thinking about harming or killing yourself, or planning or trying to do so; extreme worry; agitation; panic attacks; difficulty falling asleep or staying asleep; aggressive behavior; irritability; acting without thinking; severe restlessness; and frenzied ab normal excitement. Be sure that your family or caregiver knows which symptoms may be serious so they can call the doctor if you are unable to seek treatment on your own. Your healthcare provider will want to see you often while you are taking fluoxetine, especially at the beginning of your treatment. Be sure to keep all appointments for office visits with your doctor. The doctor or pharmacist will give you the integrated program teacher's patient information sheet (Medication Guide) when you begin treatment with fluoxetine. Read the information carefully and ask your doctor or pharmacist if you have any questions. You also can obtain the Medication Guide from the FDA website: https://www.fda.gov/Drugs/DrugSafety/htg116139.htm. No matter your age, before you take an antidepressant, you, your parent, or your caregiver should talk to your doctor about the risks and benefits of treating your condition with an antidepressant orwith other treatments. You should also talk about the risks and benefits of not treating your condition. You should know that having depression or another mental illness greatly increases the risk that you will become suicidal. This risk is higher if you or anyone in your family has or has ever hadbipolar disorder (mood that changes from depressed to abnormally excited) or arnold (frenzied, abnormally excited mood) or has thought about or attempted suicide. Talk to your doctor about your condition, symptoms, and personal and family medical history. You and your doctor will decide what type oftreatment is right for you. WHY is this medicine prescribed? Fluoxetine is used to treat depression, obsessive-compulsive disorder (bothersome thoughts that won't go away and the need to perform certain actions over and over), some eating disorders, and panic attacks (sudden, unexpected attacks of extreme fear and worry about these attacks). Fluoxetine is also used to relieve the symptoms of premenstrual dysphoric disorder, including mood swings, irritability, bloating, and breast tenderness. It is also used along with olanzapine (Zyprexa) to treat depression that did not respond to other medications and episodes of depression in people with bipolar I disorder (manic- depressive disorder; a disease that causes episodes of depression, episodes of arnold, and other abnormal moods). Fluoxetine is in a class of medications called selective serotonin reuptake inhibitors (SSRIs). It works by increasing the amount of serotonin, a natural substance in the brain that helps maintain mental balance. HOW should this medicine be used? Fluoxetine comes as a capsule, a tablet, a delayed-release (releases the medication in the intestine) capsule, and a solution (liquid) to take by mouth. Fluoxetine may be taken with or without food. Fluoxetine capsules, tablets, and liquid are usually taken once a day in the morning or twice a day in the morning and at noon. Fluoxetine delayed-released capsules are usually taken once a week. Takefluoxetine at around the same time(s) every day. Follow the directions on your prescription label carefully, and ask your doctor or pharmacist to explain any part you do not understand. Take fluoxetine exactly as directed. Do not take more or less of it or take it more often than prescribed by yourdoctor. Swallow the delayed-release capsules whole; do not cut, crush, or chew them. Your doctor may start you on a low dose of fluoxetine and gradually increase your dose. It may take 4 to 5 weeks or longer before you feel the full benefit of fluoxetine. Continue to takefluoxetine even if you feel well. Do not stop taking fluoxetine without talking to your doctor. If you suddenly stop taking fluoxetine, you may experience withdrawal symptoms such as mood changes, irr itability, agitation, dizziness, numbness or tingling in the hands or feet, anxiety, sweating, confusion, headache, tiredness, and difficulty falling asleep or staying asleep. Your doctor will probably decrease your dose gradually. Are there OTHER USES for this medicine? Fluoxetine is also sometimes used to treat alcoholism, attention-deficit disorder, borderline personality disorder, sleep disorders, headaches, mental illness, posttraumatic stress disorder, Tourette's syndrome, obesity, sexual problems, and phobias. Talk to your doctor about the possible risks of using this medication for your condition. This medication may be prescribed for other uses; ask your doctor or pharmacist for more information. What SPECIAL PRECAUTIONS should I follow? Before taking fluoxetine, ? tell your doctor and pharmacist if you are allergic to fluoxetine, any other medications, or any of the ingredients in fluoxetine capsules, tablets, or solution. Ask your pharmacist for a list of the ingredients. ? tell your doctor or pharmacist if you are taking the following medications or have stopped takingthem within the past two weeks: pimozide (Orap), thioridazine, or a monoamine oxidase (MAO) inhibitor such as isocarboxazid (Marplan), linezolid (Zyvox), methylene blue, phenelzine (Nardil), selegiline (Emsam, Zelapar), and tranylcypromine (Parnate) Y If you stop taking fluoxetine, you should wait at least 5 weeks before you begin to take thioridazine or a monoamine oxidase inhibitor. ? some medications should not be taken with fluoxetine. Other medications may cause dosing changes or extra monitoring when taken with fluoxetine. Make sure you have discussed any medications you arecurrently taking or plan to take before starting fluoxetine with your doctor and pharmacist. Beforestarting, stopping, or changing any medications while taking fluoxetine, please get the advice of your doctor or pharmacist. ? the following nonprescription or herbal products may interact with fluoxetine: Aditya's wort; tryptophan. Be sure to let your doctor and pharmacist know that you are taking these medications before you start taking fluoxetine. Do not start any of these medications while taking fluoxetine without discussing with your healthcare provider. ? tell your doctor if you or anyone in your family has or has ever had a prolonged QT interval (a rare heart problem that may cause irregular heartbeat, fainting, or sudden ). Also tell your doctor if you have a low level of potassium, magnesium, or sodium in your blood or are being treated with electroshock therapy (procedure in which small electric shocks are administered to the brain to treat certain mental illnesses). Tell your doctor if you have recently had a heart attack and if you have or have ever had a slow or irregular heartbeat, heart failure, or any other heart problems; high blood pressure; bleeding problems; a stroke; diabetes; seizures; or liver or kidney disease. ? tell your doctor if you are , especially if you are in the last few months of your , or if you plan to become or are . If you become while taking fluoxetine, call your doctor. Fluoxetine may cause problems in newborns following delivery if it is taken during the last months of . ? you should know that fluoxetine may make you drowsy and may affect your judgment, thinking, and movements. Do not drive a car or operate machinery until you know how this medication affects you. ? remember that alcohol can add to the drowsiness caused by this medication. ? you should know that fluoxetine may cause angle-closure glaucoma (a condition where the fluid is suddenly blocked and unable to flow out of the eye causing a quick, severe increase in eye pressure which may lead to a loss of vision). Talk to your doctor about having an eye examination before you start taking this medication. If you have nausea, eye pain, changes in vision, such as seeing colored rings around lights, and swelling or redness in or around the eye, call your doctor or get emergency medical treatment right away. What should I do IF I FORGET to take a dose? Take the missed dose as soon as you remember it. However, if it is almost time for the next dose, skip the missed dose and continue your regular dosing schedule. Do not take a double dose to make up for a missed one. What SIDE EFFECTS can this medicine cause? Some side effects can be serious. If you experience any of the following symptoms or those listed in the IMPORTANT WARNING or SPECIAL PRECAUTIONS section, call your doctor immediately: ? rash ? hives or blisters ? itching ? fever ? joint pain ? swelling of the face, throat, tongue, lips, eyes, hands, feet, ankles, or lower legs ? difficulty breathing or swallowing ? agitation, fever, sweating, confusion, fast or irregular heartbeat, shivering, severe muscle stiffness or twitching, hallucinations, loss of coordination, nausea, vomiting, or diarrhea ? fast, slow, or irregular heartbeat ? shortness of breath ? dizziness or fainting ? seizures ? abnormal bleeding or bruising Fluoxetine may decrease appetite and cause weight loss in children. Your child's doctor will watch his or her growth carefully. Talk to your child's doctor if you have concerns about your child's growth or weight while he or she is taking this medication. Talk to your child's doctor about the risksof giving fluoxetine to your child. Fluoxetine may cause other side effects. Call your doctor if you have any unusual problems while taking this medication. If you experience a serious side effect, you or your doctor may send a report to the Food and Drug Administration's (FDA) MedWatch Adverse Event Reporting program online (https://www.fda.gov/Safety/MedWatch) or by phone ( ). What should I know about STORAGE and DISPOSAL of this medication? Keep this medication in the container it came in, tightly closed, and out of reach of children. Store it at room temperature and away from light, excess heat, and moisture (not in the bathroom). Keep all medication out of sight and reach of children as many containers are not child-resistant. Always lock safety caps. Place the medication in a safe location - one that is up and away and out of their sight and reach. https://www.RewardSnapndVaxart.NEXGRID Dispose of unneeded medications in a way so that pets, children, and other people cannot take them.Do not flush this medication down the toilet. Use a medicine take-back program. Talk to your pharmacist about take-back programs in your community. Visit the FDA's Safe Disposal of Medicines website h ttps://goo.gl/c4Rm4p for more information. What should I do in case of OVERDOSE? In case of overdose, call the poison control helpline at . Information is also available online at https://www.poisonhelp.org/help. If the victim has collapsed, had a seizure, has trouble breathing, or can't be awakened, immediately call emergency services at 911. Symptoms of overdose may include the following: ? unsteadiness ? confusion ? unresponsiveness ? nervousness ? uncontrollable shaking of a part of the body ? dizziness ? rapid, irregular, or pounding heartbeat ? seeing things or hearing voices that do not exist (hallucinating) ? fever ? fainting ? seizures ? coma (loss of consciousness for a period of time) What OTHER INFORMATION should I know? Keep all appointments with your doctor. Before having any laboratory test (especially those that involve methylene blue), tell your doctor and the laboratory personnel that you are taking fluoxetine. Do not let anyone else take your medication. Ask your pharmacist any questions you have about refilling your prescription Keep a written list of all of the prescription and nonprescription (wtbc-[id number]-ltyahij) medicines, vitamins, minerals, and dietary supplements you are taking. Bring this list with you each time you visit a doctor or if you are admitted to the hospital. You should carry the list with you in case of stevie rgencies. Brand Name(s): ? Prozac?? ? Prozac?? Weekly?? ? Rapiflux? Sarafem? Selfemra? Symbyax?? (as a combination product containing Fluoxetine, Olanzapine) also available generically ?? This branded product is no longer on the market. Generic alternatives may be available. This report on medications is for your information only, and is not considered individual patient advice. Because of the changing nature of drug information, please consult your physician or pharmacist about specific clinical use. The [employer] represents that the information provided hereunder was formulated with a reasonable standard of care, and in conformity with professional standards in the field. The [employer] makes no representations or warranties, express or implied, including, but not limited to, any implied warranty of merchantability and/or fitness for a particular purpose, with respect to such information and specifically disclaims all such warranties. Users are advised that decisions regarding drug therapy are complex medical decisions requiring the independent, informed decision of an appropriate health daycare teacher, and the information is provided for informational purposes only. The entire monograph for a drug should be reviewed for a thorough understanding of the drug's actions, uses and side effects. The [employer] does not endorse or recommend the use of any drug.The information is not a substitute for medical care. AHFS?? Patient Medication Information?. ?? Copyright, 2023. [employer]??, [address], [address], [place], [place]. All Rights Reserved. Duplication for commercial use must be authorized by [facility]. Selected Revisions: September 30, 2021. AHFS?? Patient Medication Information?. ?? Copyright, 2024 * [employer] DonYARA - Shanika Driscoll RN - 05/03/2025 9:33 AM EDT Images from the original note were not included. [id number] Adjustment Disorder Life changes--work, family, parents, children--can cause a lot of stress in life. An adjustment disorder means you have trouble dealing with change and stress. This problem can have serious results. You may feel helpless or depressed. You may make bad decisions. You may even feel like you want to hurt yourself. Adjustment disorder can cause anxiety or depression. It's set off by stresses, such as: ? of a loved one. ? Divorce. ? Marriage. ? General life changes, such as changing or leaving a job. ? Moving. ? Illness or another health issue for you or a family member. ? Sex. ? Money. There are 3 main types of adjustment disorder. You may have only 1 or a mixture of them. They include: ? Adjustment disorder with depressed mood. ? Adjustment disorder with anxiety. ? Adjustment disorder with misconduct. Symptoms may include: ? Sadness or crying. ? Anxiety. ? Insomnia. ? Poor concentration. ? Trouble doing simple things. ? New problems at work or with family or friends. ? Loss of self-esteem. ? Sense of hopelessness. ? Feeling trapped or cut off from others. With this condition, it's common to feel sad, guilty, hopeless, and restless. These feelings may continue for weeks or months. It can be helpful to identify what's causing the additional stress. Thentake steps to get extra support. If new stressful events don't happen, it's likely that you will gradually start feeling better. Adjustment disorder may be treated with: ? Talk therapy. Cognitive-behavioral therapy can help you deal with your feelings. ? Medicines. Sometimes you may be prescribed medicines to relieve symptoms, such as insomnia, anxiety, or depression Home care ? If you have been given a prescription for medicine, take it as directed. Don't change or stop your medicine without talking with your doctor. ? Talk about your feelings and thoughts with trusted family or friends who understand and support you. ? Consider short-term in-person or online professional therapy. Talk with your doctor to learn more. ? Taking good care of yourself can help reduce stress. You can do this by having a healthy scheduleof eating, sleeping, and exercising. Follow-up care Follow up with your doctor, or therapist as advised. Let them know if this condition doesn't improve or gets worse. Crisis care If you are in a crisis or have thoughts of suicide or self-harm, call or text 318right away. This is the 98 Suicide & Crisis Lifeline. You will be connected to a trained counselor you can talk to. There's also an online chat option. You can also call Lifeline at 355-846-QNWL ([phone]). The 98 Lifeline is free and available 08/04. When to contact your doctor Contact your doctor right away if: ? Your depression or anxiety gets worse. ? You're feeling out of control. ? You have thoughts of harming yourself or others. ? You are unable to care for yourself. Last Reviewed Date: 2025 00:00:00 ?? [id number] [employer]. All rights reserved. This information is not intended as a substitute for professional medical care. Always follow your healthcare professional's instructions. * Discharge Summary - Valarie Moody APRN - 05/03/2025 9:28 AM EDT Images from the original note were not included. [facility] Psych Discharge Summary Hospitalization Admit Date/Time: 05/02/2025 2:14 PM Admitting Attending: Discharge Date: 05/03/25 Discharge Attending Physician: Krunal Broderick MD PCP name and Address: Pcp, [address] [facility] [address] Chief Concern, Brief History of Present Illness, and Hospital Course Dameon Zimmer is a 25 y.o. male with reported hx of [facility] with plan to OD on Ibuprofen. Per report pt took 600mg Ibuprofen and was medically cleared prior to transfer. On initial evaluation, pt is calm, cooperative and reports suicidal ideation on and off for the last month following the recent break up with his girlfriend and losing his job [facility] [employer] [facility] random drug screen (+THC). Pt denies any other substance or alcohol use. Pt denies past suicide attempts or psych hospitalizations. Pt denies HI/AVH. Pt reports he has never taken any men danay health medications. Pt reports he lives by himself in an apartment in [place], [place] and may return there upon discharge. Pt verbalizes interest in initiating medication management as well as outpatient mental healthcare. Upon interview this morning pt requests discharge home. Denies SI/HI/AVH and paranoia. He plans to go to follow up appointments, he is calm, cooperative and pleasant overall. Counseled on discontinuing all substance use including THC, he endorses understanding. Medication List You have not been prescribed any medications. Discharge Diagnosis Final diagnoses: [F43.20] Adjustment disorder, unspecified type Post Discharge Instructions Keep all appointments, avoid substance use. Disposition Observation Provider Care Team: ADRIANE Dykes [[id number]] Are they the primary team?: Yes [1] Outpatient Follow-Up No future appointments. Test Results At Discharge Pending: none Recent Results (from the past 24 hours) POCT Drugs of Abuse Collection Time: 05/03/25 7:55 AM Result Value Ref Range POC Amphetamine Screen, Urine Negative Negative POC Amphetamine Internal QC OK? Yes Positive results should be sent to laboratory for confirmation. POC Barbiturate Screen, Urine Negative Negative POC Barbiturates Internal QC OK? Yes Positive results should be sent to laboratory for confirmation. POC Buprenorphine Screen, Urine Negative Negative POC Buprenorphine Internal QC OK? Yes Positive results should be sent to laboratory for confirmation. POC Benzodiazepines Screen, Urine Negative Negative POC Benzodiazepines Internal QC OK? Yes Positive results should be sent to laboratory for confirmation. POC Cocaine Screen, Urine Negative Negative POC Cocaine Internal QC OK? Yes Positive results should be sent to laboratory for confirmation. POC Methamphetamine Screen, Urine Negative Negative POC Methamphetamine Internal QC OK? Yes Positive results should be sent to laboratory for confirmation. POC Methadone Screen, Urine Negative Negative POC Methadone Internal QC OK? Yes Positive results should be sent to laboratory for confirmation. POC Opiate Screen, Urine Negative Negative POC Opiates Internal QC OK? Yes Positive results should be sent to laboratory for confirmation. POC Oxycodone Screen, Urine Negative Negative POC Oxycodone Internal QC OK? Yes Positive results should be sent to laboratory for confirmation. POC THC Screen, Urine Presumptive Positive (A) Negative POC THC Internal QC OK? Yes Positive results should be sent to laboratory for confirmation. POC Urine Temperature Normal Normal POC UDS Kit Lot Number [id number] POC UDS Kit Expiration [id number] POC UDS Collection Observed? Not Observed Pertinent Mental Status At Time of Discharge: Appearance: appears stated age, wearing street clothes, poor hygiene Attitude: cooperative, interested in treatment Eye Contact: appropriate Speech: appropriate rate and volume, non-pressured Involuntary Movements: absent Psychomotor Activity: no significant depression or agitation Level of Consciousness: alert and attentive Memory: grossly intact Mood: I feel better Affect: congruent with stated mood, full range Thought Process: linear, organized, goal-directed Thought Content: no overt delusions, not responding to internal stimuli AVH: denied SI: denies HI: denied Insight: fair Judgment: fair Calculated C-SSRS Risk Score (Lifetime/Recent): Low Risk Discharge Disposition/Condition Disposition: Home Condition: Stable (s/sx potential problems absent or manageable) I spent >30 minutes of patient care and instruction time in preparation for this discharge. Cosigned by Neal Bush DO at 05/03/2025 1:29 PM EDT Associated attestation - Neal Bush DO - 05/03/2025 1:29 PM EDT The patient was seen only by Advanced Practice Provider (AYLA), and care was reviewed with me. * Discharge Instr - Appointments - Camille Ramirez - 05/03/2025 9:07 AM EDT [facility] Intake Appointment for Behavioral Health Follow up KENNEDY Santiago, Intake SatMay 05 1:[address] [place] [address] * Clinician Note - Camille Ramirez - 05/03/2025 9:00 AM EDT Plan is for patient to discharge home. Mother Kenya had requested call to let her know of plan per yesterday's note. Just attempted to call- [phone]- but wireless customer was unavailable. Confirmed with patient it was still ok to talk with mom. Will call back later. * Progress Notes - Valarie Moody, ELVIA - 05/03/2025 8:22 AM EDT [facility] Progress Note Problem List[1] Calculated C-SSRS Risk Score (Lifetime/Recent): Low Risk Results: Recent Results (from the past 24 hours) POCT Drugs of Abuse Collection Time: 05/03/25 7:55 AM Result Value Ref Range POC Amphetamine Screen, Urine Negative Negative POC Amphetamine Internal QC OK? Yes Positive results should be sent to laboratory for confirmation. POC Barbiturate Screen, Urine Negative Negative POC Barbiturates Internal QC OK? Yes Positive results should be sent to laboratory for confirmation. POC Buprenorphine Screen, Urine Negative Negative POC Buprenorphine Internal QC OK? Yes Positive results should be sent to laboratory for confirmation. POC Benzodiazepines Screen, Urine Negative Negative POC Benzodiazepines Internal QC OK? Yes Positive results should be sent to laboratory for confirmation. POC Cocaine Screen, Urine Negative Negative POC Cocaine Internal QC OK? Yes Positive results should be sent to laboratory for confirmation. POC Methamphetamine Screen, Urine Negative Negative POC Methamphetamine Internal QC OK? Yes Positive results should be sent to laboratory for confirmation. POC Methadone Screen, Urine Negative Negative POC Methadone Internal QC OK? Yes Positive results should be sent to laboratory for confirmation. POC Opiate Screen, Urine Negative Negative POC Opiates Internal QC OK? Yes Positive results should be sent to laboratory for confirmation. POC Oxycodone Screen, Urine Negative Negative POC Oxycodone Internal QC OK? Yes Positive results should be sent to laboratory for confirmation. POC THC Screen, Urine Presumptive Positive (A) Negative POC THC Internal QC OK? Yes Positive results should be sent to laboratory for confirmation. POC Urine Temperature Normal Normal POC UDS Kit Lot Number [id number] POC UDS Kit Expiration [id number] POC UDS Collection Observed? Not Observed Interventions: Set up apt with [place], safety plan. Active Problems: There are no active Hospital Problems. CGI Status: Compared to patient's condition on admission, how much has the patient's condition changed? 0= Not Assessed; 1= Very much improved; 2= Much improved; 3= Minimally improved; 4= No change; 5= Minimally worse; 6= Much worse; 7= Very much worse Plan Recommend revaluation within 4 hours. [1] There is no problem list on file for this patient. * Progress Notes - Shweta Holden APRN - 05/02/2025 11:23 PM EDT [facility] Progress Note I received sign-out and accepted care of this patient from the departing providers Isaiah Nelson APRN at 1900 hour. Please see the primary providers' note for complete elements of the history, physical exam, and ED course. Problem List[1] Calculated C-SSRS Risk Score (Lifetime/Recent): Low Risk Results: No results found for this or any previous visit (from the past 24 hours). Interventions: Observed resting in milieu, continue observation Active Problems: There are no active Hospital Problems. CGI Status: Compared to patient's condition on admission, how much has the patient's condition changed? 0= Not Assessed; 1= Very much improved; 2= Much improved; 3= Minimally improved; 4= No change; 5= Minimally worse; 6= Much worse; 7= Very much worse Plan 4 Continue initiation of prozac 10 mg daily. Meet with [facility] in AM to establish sevices. Likely d/c home to apartment. Collaborate with sw for collateral. Recommend revaluation within 4-6 hours. [1] There is no problem list on file for this patient. * ED Notes - Ileana Hunter - 05/02/2025 8:27 PM EDT Patient currently sleeping, unable to draw blood at this time. * Clinician Note - Priya Nathan - 05/02/2025 7:14 PM EDT SW spoke with pts step father Bryant and mother. Per collateral, they have a family hx of mental illness. Mothers aunt was diagnosed with schizophrenia and mother was diagnosed with multiple personality disorder. Pt hasn't been diagnosed with anything. Pt is typically very outgoing. Pt experience losing a brother and cps got involved so pt has trauma. Pts aunt was murdered 8 years ago and pts grandparents have passed on. Pt doesn't currently see a therapist or psychiatrist. Pt isn't on any medications. Pt smokes marijuana sometimes. Pt has never threatened suicide before and no suicide attempts before. Pt stated he has been feeling hopeless and useless. This has gone on within the last weekand has become intense. Pt lives with her nephew, to her knowledge they have no weapons in the home. Mother requested to hear where pt is going when he is gone from [facility]. * Clinician Note - Priya Nathan - 05/02/2025 6:36 PM EDT CINTIA was given permission to contact Bryant . Call was unsuccessful. SW left a meesage. * Clinician Note - Priya Nathan - 05/02/2025 3:55 PM EDT SW spoke with pt. Pt reported feeling better. Pt stated he was just depressed and denied SI/HI AVH.Pt reported no support at home, no family members or friends. Pt denied collateral and appointments. SW explained to pt the benefits of getting connected with therapy and discussed if pt would like to think about it. Pt agreed to give it some thought. * ED Provider Notes - Isaiah Nelson APRN - 05/02/2025 2:14 PM EDT [facility] Psych Initial Eval Chief Concern & History Of Present Illness Dameon Zimmer is a 25 y.o. male with reported hx of [facility] with plan to OD on Ibuprofen. Per report pt took 600mg Ibuprofen and was medically cleared prior to transfer. On initial evaluation, pt is calm, cooperative and reports suicidal ideation on and off for the last month following the recent break up with his girlfriend and [facility] [employer] [facility] (+THC). Pt denies any other substance or alcohol use. Pt denies past suicide attempts or psych hospitalizations. Pt denies HI/AVH. Pt reports he has never taken any men danay health medications. Pt reports he lives by himself in an apartment in [place], [place] and may return there upon discharge. Pt verbalizes interest in initiating medication management as well as outpatient mental healthcare. Collateral: Pt has agreed for SW to speak with the following: Kenya (mother) DASA Score:: 0 Calculated C-SSRS Risk Score (Lifetime/Recent): Low Risk Past Medical and Surgical History not significant other than Past Medical History[1] . Allergies Patient has no known allergies. Medications Current Medications[2] Review of Systems Psych Review of Symptoms: Depressive Symptoms: Depressed mood, feelings of worthlessness, hopelessness and suicidal ideation. Psychotic Symptoms: Patient denied any symptoms. Physical Exam Eyes: Pupils: Pupils are equal, round, and reactive to light. Cardiovascular: Rate and Rhythm: Normal rate and regular rhythm. Pulses: Normal pulses. Heart sounds: Normal heart sounds. Pulmonary: Effort: Pulmonary effort is normal. Breath sounds: Normal breath sounds. Musculoskeletal: General: Normal range of motion. Skin: General: Skin is warm and dry. Neurological: Mental Status: He is alert and oriented to person, place, and time. Mental Status Evaluation: Appearance: appears stated age, wearing street clothes, poor hygiene Attitude: cooperative, interested in treatment Eye Contact: appropriate Speech: appropriate rate and volume, non-pressured Involuntary Movements: absent Psychomotor Activity: no significant depression or agitation Level of Consciousness: alert and attentive Memory: grossly intact Mood: my girlfriend broke up with and I lost my job Affect: congruent with stated mood, full range Thought Process: linear, organized, goal-directed Thought Content: no overt delusions, not responding to internal stimuli AVH: denied SI: passive, without plan HI: denied Insight: fair Judgment: fair First Recorded Vitals ED Triage Vitals [05/02/25 1420] Temp Heart Rate Resp BP -- 69 -- (!) 152/98 SpO2 Temp src Heart Rate Source Patient Position 97 % -- -- -- BP Location FiO2 (%) -- -- Labs No results found for this or any previous visit (from the past 24 hours). Problem based Plan and Disposition: #Adjustment disorder unspecified - admit to [facility], observe in therapeutic milieu. - Start Prozac 10mg x 1 now for mood. - PDMP reviewed. - SW to obtain collateral. Connect with outpatient mental health. Determine dispo. - labs and UDS from OSH - results reviewed. - no interventions indicated at this time. - PRNs if indicated. - Suicide Precautions in place. Recommend revaluation within 4-6 hours. [1] History reviewed. No pertinent past medical history. [2] Current Facility-Administered Medications Medication Dose Route Frequency Provider Last Rate Last Admin acetaminophen (Tylenol) tablet 650 mg 650 mg Oral q6h PRN Isaiah Nelson APRN aluminum & magnesium hydroxide-simethicone (Mylanta) 200-200-20 MG/5ML oral suspension 10 mL 10mL Oral q6h PRN Isaiah Nelson APRN hydrOXYzine pamoate (Vistaril) capsule 50 mg 50 mg Oral q6h PRN Isaiah Nelson APRN magnesium hydroxide (Milk of Magnesia) 400 MG/5ML suspension 10 mL 10 mL Oral Daily PRN Isaiha Nelson APRN No current outpatient medications on file. Isaiah Nelson APRN 05/02/25 1730 * ED Triage Notes - Viancarealjaycobjane Michael Raya - 05/02/2025 2:14 PM EDT [facility] Pt reported to have had 2-3 shifts last night and taken 3 Ibuprofen; the latter for stomach pain. Pt SI w/plan to overdose. Pt minimizes last night's SA attempt. Pt reports having 2 young sons that he wants to live for. Pt reports a life that is very introvertedand he has little interests in anything other than computer games. Pt's trigger for SA was break upw/girlfriend. Pt also has no job at this time. Pt is on no home meds at this time. documented in this encounter Plan of Treatment Not on file documented as of this encounter Procedures Procedure Name Priority Date/Time Associated Diagnosis Comments POCT DRUGS OF ABUSE, URINE STAT 05/03/2025 7:55 AM EDT documented in this encounter Results * (ABNORMAL) POCT Drugs of Abuse (05/03/2025 7:55 AM EDT) POC Amphetamine Screen, Urine Negative Negative POC Amphetamine Internal QC OK? Yes Positive results should be sent to laboratory for confirmation . POC Barbiturate Screen, Urine Negative Negative POC Barbiturates Internal QC OK? Yes Positive results should be sent to laboratory for confirmation . POC Buprenorphine Screen, Urine Negative Negative POC Buprenorphine Internal QC OK? Yes Positive results should be sent to laboratory for confirmation . POC Benzodiazepines Screen, Urine Negative Negative POC Benzodiazepines Internal QC OK? Yes Positive results should be sent to laboratory for confirmation . POC Cocaine Screen, Urine Negative Negative POC Cocaine Internal QC OK? Yes Positive results should be sent to laboratory for confirmation . POC Methamphetamine Screen, Urine Negative Negative POC Methamphetamine Internal QC OK? Yes Positive results should be sent to laboratory for confirmation . POC Methadone Screen, Urine Negative Negative POC Methadone Internal QC OK? Yes Positive results should be sent to laboratory for confirmation . POC Opiate Screen, Urine Negative Negative POC Opiates Internal QC OK? Yes Positive results should be sent to laboratory for confirmation . POC Oxycodone Screen, Urine Negative Negative POC Oxycodone Internal QC OK? Yes Positive results should be sent to laboratory for confirmation . POC THC Screen, Urine Presumptive Positive(A) Negative POC THC Internal QC OK? Yes Positive results should be sent to laboratory for confirmation . POC Urine Temperature Normal Normal POC UDS Kit Lot Number [id number] POC UDS Kit Expiration [id number] POC UDS Collection Observed? 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 POINT OF CARE TEST ENTER/E DIT ORDERABLES Final Result documented in this encounter Visit Diagnoses Diagnosis Adjustment disorder, unspecified type- Primary documented in this encounter Administered Medications Inactive Administered Medications - up to 3 most recent administrations Medication Order MAR Action Action Date Dose Rate Site acetaminophen (Tylenol) tablet 650 mg 650 mg, Oral, Every 6 hours PRN, Starting on 05/02/25 at 1419, Until Sat05/03/25 at 1502, Routine, mild pain, moderate pain aluminum & magnesium hydroxide-simethicone (Mylanta) 200-200-20 MG/5ML oral suspension 10 mL 10 mL, Oral, Every 6 hours PRN, Starting on 05/02/25 at 1419, Until Sat05/03/25 at 1502, Routine, indigestion, heartburnIndications:UGI Symptoms FLUoxetine (PROzac) capsule 10 mg 10 mg, Oral, Once, 1 dose, On 05/02/25 at 1745, STAT Given 05/02/2025 6:04 PM EDT 10 mg FLUoxetine (PROzac) capsule 10 mg 10 mg, Oral, Daily, First dose on Sat05/03/25 at 0900, Until Discontinued, Routine Given 05/03/2025 8:48 AM EDT 10 mg hydrOXYzine pamoate (Vistaril) capsule 50 mg 50 mg, Oral, Every 6 hours PRN, Starting on 05/02/25 at 1419, Until Sat05/03/25 at 1502, Routine, anxietyIndications:Anxiety magnesium hydroxide (Milk of Magnesia) 400 MG/5ML suspension 10 mL 10 mL, Oral, Daily PRN, Starting on 05/02/25 at 1419, Until Sat05/03/25 at 1502, Routine, constipationIndications:Constipatio n documented in this encounter Active and Recently Administered Medications Times are shown in EDT. Scheduled Medication Order 05/01/2025 05/02/2025 05/03/2025 FLUoxetine (PROzac) capsule 10 mg (COMPLETED) 10 mg, Oral, Once, 1 dose, On 05/02/25 at 1745, STAT 1804 (Given - Provider: Michael Navas) FLUoxetine (PROzac) capsule 10 mg 10 mg, Oral, Daily, First dose on Sat05/03/25 at 0900, Until Discontinued, Routine 0848 (Given - Provid er: Shanika Driscoll RN) PRN Medication Order 05/01/2025 05/02/2025 05/03/2025 acetaminophen (Tylenol) tablet 650 mg 650 mg, Oral, Every 6 hours PRN, Starting on 05/02/25 at 1419, Until 05/03/25 at 1502, Routine, mild pain, moderate pain aluminum & magnesium hydroxide-simethicone (Mylanta) 200-200-20 MG/5ML oral suspension 10 mL 10 mL, Oral, Every 6 hours PRN, Starting on 05/02/25 at 1419, Until 05/03/25 at 1502, Routine, indigestion, heartburn hydrOXYzine pamoate (Vistaril) capsule 50 mg 50 mg, Oral, Every 6 hours PRN, Starting on 05/02/25 at 1419, Until Sat05/03/25 at 1502, Routine, anxiety magnesium hydroxide (Milk of Magnesia) 400 MG/5ML suspension 10 mL 10 mL, Oral, Daily PRN, Starting on 05/02/25 at 1419, Until Sat05/03/25 at 1502, Routine, constipation documented in this encounter Additional Health Concerns Assessment Noted Time PHQ-9 Depression Total Score: 18 025 2:40 PM EDT documented as of this encounter Care Teams [id number] Tank Driver Relationship Specialty Start Date End Date Pcp, [place] [address] PCP - General Family Medicine 05/02/25 documented as of this encounter
[2025-05-09] VITALS (19 sets, daily range): BP systolic 123–169; BP diastolic 77–109; PULSE 70–96; RESP 16–20; TEMP 36.7; O2SAT 91–98; BMI 36.5
--- NOTE | 2025-05-09 02:24 | ECG_ITS ---
APPROVED REPORT Exam: Resting ECG HR:84 bpm ECG Measurements Heart Rate 84 AXES ND 155 P 42 QRSd 87 QRS 1 QT 334 T 12 QTc 375 Conclusion SINUS RHYTHM VOLTAGE CRITERIA FOR LVH [MEETS CRITERIA IN ONE OF: R(aVL), S(V1), R(V5), R(V5/V6)+S(V1)] ABNORMAL ECG No STEMI Electronically signed by : LENY PASCUAL, 05/18/2025 04:01:27
--- OUTSIDE RECORDS SUMMARY | 2025-05-09 02:34 | XMS_ITS | Encounter Summary ---
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 0 05/02/2025 CAGE Questionnaire Score 2 025 Sex and Gender Information Value Date Recorded Sex Assigned at Not on file Legal Sex Male 5:10 AM EDT Gender Identity Not on file Sexual Orientation Not on file documented as of this encounter Functional Status * Over the past 2 weeks, how often have you been bothered by any of the following problems? Question Answer Date of Assessment Author Patient Health Questionnaire -2 Score 4 05/02/2025 2:40 PM EDT Radha Navas * Calculated C-SSRS Risk Score (Lifetime/Recent) Answer Date of Assessment Author Low Risk 05/02/2025 3:23 PM EDT Rogers Osorio RN * If you checked off any [...] Ideation Rating (Lifetime) 5 05/02/2025 3:23 PM EDT Evelin Osorio RN Frequency (Lifetime) 5 05/02/2025 3:23 PM E DT Evelin Osorio RN Duration (Lifetime) 3 05/02/2025 3:23 PM ED T Evelin Osorio RN Controllability (Lifetime) 5 05/02/2025 3:2 3 PM EDT Evelin Osorio RN Deterrents (Lifetime) 0 05/02/2025 3:23 PM EDT Evelin Osorio RN Reasons for Ideation (Lifetime) 0 3:23 PM EDT Evelin Osorio RN Most Severe Ideation Rating (Past 1 Month) 5 05/02/2025 3:23 PM EDT Evelin Osorio RN Frequency (Past 1 Month) 5 05/02/2025 3:23 PM EDELT Evelin Osorio RN Duration (Past 1 Month) 3 05/02/2025 3:23 P M EDT Evelin Osorio RN Controllability (Past 1 Month) 5 05/02/2025 3:23 PM EDELT Evelin Osorio RN Deterrents (Past 1 Month) 0 05/02/2025 3:23 PM EDT Evelin Osorio RN Reasons for Ideation (Past 1 Month) [...] than half the days 05/02/2025 2:40 PM EDT Michael Navas Feeling down, depressed, or hopeless More than half the days 05/02/2025 2:40 PM EDT Michael Navas Trouble falling or staying asleep, or sleeping too much Nearly every day 05/02/2025 2:40 PM EDT Michael Navas Feeling tired or having little energy Nearly every day 05/02/2025 2:40 PM EDT Michael Navas Poor appetite or overeating Nearly every day 05/02/2025 2:40 PM EDT Michael Navas Feeling bad about yourself - or that you are a failure or have let yourself or your family down More than half the days 05/02/2025 2:40 PM EDT Michael Navas Trouble concentrating on things, such [...] Assessment Author 6. Suicidal Behavior (Lifetime) No 5 2:35 PM EDT Michael Navas documented as of this encounter Plan of Treatment Not on file documented as of this encounter Visit Diagnoses Not on filedocumented in this encounter Additional Health Concerns Assessment Noted Time PHQ-9 Depression Total Score: 18 025 2:40 PM EDT documented as of this encounter Care Teams Braille And Talking Books Clerk Relationship Specialty Start Date End Date Pcp, No [address] [place] [address] PCP - General Family Medicine 05/02/25 documented as of this encounter
--- OUTSIDE RECORDS SUMMARY | 2025-05-09 02:34 | XMS_ITS | Clinical Summary ---
Author Organization [facility] Address [address] 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
--- OUTSIDE RECORDS SUMMARY | 2025-05-09 02:34 | XMS_ITS | Clinical Summary ---
Author Organization Healthcare Address [address] [place] [address] Care Team Providers Care Sliver Lapper Name Role Phone Pcp, No Primary Care Provider Unavailabl e Allergies No known active allergies Medications FLUoxetine (PROzac) 10 MG capsule Take 1 capsule by mouth daily. 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 0 05/02/2025 CAGE Questionnaire Score 2 025 Sex and Gender Information Value Date Recorded Sex Assigned at Not on file Legal Sex Male 5:10 AM EDT Gender Identity Not on file Sexual Orientation Not on file Last Filed Vital Signs Vital Sign Reading Time Taken Comments Blood Pressure 152/98 05/02/2025 2:20 PM EDT Pulse 69 05/02/2025 2:20 PM EDT Temperature 37 C (98.6 F) 05/02/2025 9:27 AM EDT Respiratory Rate 20 05/02/2025 6:44 PM EDT Oxygen Saturation 97% 05/02/2025 2:20 PM EDT Inhaled Oxygen Concentration - - Weight 120 kg (264 lb 8.8 oz) 05/02/2025 3:00 PM EDT Height 182.9 cm (6') 05/02/2025 3:00 PM EDT Body Mass Index 35.88 05/02/2025 3:00 PM EDT Plan of Treatment Not on file Procedures Procedure Name Priority Date/Time Associated Diagnosis Comments POCT DRUGS OF ABUSE, URINE STAT 05/03/2025 7:55 AM EDT from Last 3 Months Results * (ABNORMAL) POCT Drugs of Abuse [...] Normal Normal POC UDS Kit Lot Number [id number] POC UDS Kit Expiration [id number] POC UDS Collection Observed? Not Observed Urine 05/03/2025 7:55 AM EDT us Isaiah Nelson CASING RUNNER POINT OF CARE TEST ENTER/E DIT ORDERABLES Final Result from Last 3 Months Care Teams Sliver Lapper Relationship Specialty Start Date End Date Pcp, No [address] [place] [address] PCP - General Family Medicine 05/02/25
[2025-05-09 02:37] LABS: Hematocrit 47.1 % (42.0-52.0); Hemoglobin 16.2 g/dL (14.1-18.0); Immature Granulocytes % 0.2 %; Mean Corpuscular HGB Conc 34.4 g/dL (31.8-35.4); Mean Corpuscular Hemoglobin 29.7 pg (27.0-31.2); Mean Corpuscular Volume 86.4 fl (80-94); Nucleated Red Blood Cells % 0 %; Platelet Count 327 K/mm3 (142-424); Red Blood Count 5.45 M/mm3 (4.60-6.20); Red Cell Distribution Width-SD 40.6 fL; White Blood Count 9.6 K/mm3 (4.8-10.8)
[2025-05-09] MEDS: LACTATED RINGERS 1000ML 1,000 ML 999 ML IV (02:40)
[2025-05-09 02:48] LABS: Creatine Kinase 124 U/L (55-170); Lipase 161 U/L (23-300)
--- NOTE | 2025-05-09 02:48 | ED_ITS ---
Discharge Plan Disposition Chief Complaint: Psychiatric Symptoms Referrals Follow up/Referrals: Provider,Rhett, [Primary Care Provider, Medical] - See instructions Clinical Impressions Clinical Impression: Suicidal ideations, Intentional acetaminophen overdose, Transaminitis Print Language Print Language: Anguill[place] Discharge ED Provider: Leesa High General Adult HPI <Leesa High MD - Last Filed: 05/09/25 07:23> General Chief complaint: Psychiatric Symptoms Stated complaint: Tylenol Ingestion Time Seen by Provider: 05/09/25 02:30 History of Present Illness HPI narrative: 25-year-old male with recent suicidal ideation and intentional ingestion of ibuprofen as a suicide attempt 1 week ago presents to the ER with [facility] for concerns of intentional Tylenol overdose as a suicide attempt. Reportedly approximately 30-40 minutes prior to arrival patient ingested seven 500 mg tablets of Tylenol. EMS reports no medications in route. They report the story he gave them was that he was with his baby mama and got sad so he took Tylenol as an attempt to kill himself. They report that he was very clear with his story to them. On arrival to the ER patient is stating he thinks it was 7 tylenol and that it might have been the prescription ones but is confident it was 500mg tablets. Based on his story, he has ingested 3500mg of tylenol. He denies any coingestion. Denies any alcohol or tobacco use but admits to marijuana use. Patient states I got sad and wanted to kill myself so I took the Tylenol . He states the Tylenol ingestion was intentional in an attempt to kill himself. He is still reporting suicidal ideation at this time. He states he is willing to voluntarily go for psych treatment. Patient was evaluated and treated in this ER 1 week ago when he took 600 mg of ibuprofen as a reported suicide attempt. At that time he had transaminitis and was complaining of slight left upper quadrant abdominal pain. Ultimately a very thorough workup of this was performed and he was negative for mono, CT abdomen pelvis showed fatty liver and gynecomastia but no other acute abnormalities. Related Data Allergies Allergy/AdvReac Type Severity Reaction Status Date / Time No Known Allergies Allergy Verified 05/02/25 03:20 PFSH <Leesa High MD - Last Filed: 05/09/25 07:23> [facility] Disclaimer: The information contained in this section may have been updated after the patient was seen, as this information can be updated by other users. Social History Smoking Status: Smoker, status unknown alcohol intake: current current occupational status: other Travel in the last 8 weeks?: None <Leesa High MD - Last Filed: 05/09/25 07:23> ROS Obtained: Yes Systems reviewed as appropriate & no additional complaints except as documented per HPI Physical Exam <Leesa High MD - Last Filed: 05/09/25 07:23> General General appearance: alert and in no apparent distress Head Head exam: atraumatic and normocephalic Eye Eye exam: Present PERRL (4mm bilaterally reactive) and EOMI; Absent scleral icterus or conjunctival injection ENT ENT exam: Present mucous membranes moist Neck Neck exam: Present normal inspection and full ROM Chest Chest inspection: Present symmetric chest wall rise Respiratory Respiratory exam: Present normal lung sounds bilaterally; Absent respiratory distress, wheezes or stridor Cardiovascular Cardiovascular exam: Present regular rate and normal rhythm Abdominal Exam Abdominal exam: Present soft; Absent distention, tenderness, guarding or rebound Comment: reports chronis LUQ discomfort but no TTP Extremities Exam Extremities exam: Present full ROM; Absent edema Neurological Exam Neurological exam: Present alert and oriented X3; Absent motor sensory deficit Psychiatric Psychiatric exam: Present suicidal ideation (with attempt); Absent homicidal ideation Skin Skin exam: Present warm and dry Medical Decision Making <Leesa High MD - Last Filed: 05/09/25 07:23> Medical Records Medical records reviewed: Yes I reviewed the patient's medical records. Screening: Per USPSTF and CDC recommendations, given the prevalence of disease in our region, it is our hospital?s policy to screen for HIV and viral Hepatitis for all patients aged 18 and over and those with ongoing risk factors. Javier Inquiry Pt receiving controlled substance: No Vital Signs: 05/09/25 02:55 05/09/25 03:11 05/09/25 03:15 Temperature 98.1 F Temperature Source Oral Pulse Rate 80 92 H Pulse Rate [Left] 96 H Respiratory Rate 16 Blood Pressure 143/87 H 135/97 H Blood Pressure [Right Arm] 135/97 H Blood Pressure Mean Blood Pressure Mean [Right Arm] 109 Blood Pressure Source [Right Arm] Automatic Cuff 02 Sat by Pulse Oximetry 98 98 96 Oxygen Delivery Method Room Air 05/09/25 03:30 05/09/25 03:45 05/09/25 04:00 Temperature Temperature Source Pulse Rate 79 81 Pulse Rate [Left] Respiratory Rate Blood Pressure 139/91 H 134/88 145/90 H Blood Pressure [Right Arm] Blood Pressure Mean 99 Blood Pressure Mean [Right Arm] Blood Pressure Source [Right Arm] 02 Sat by Pulse Oximetry 96 95 Oxygen Delivery Method 05/09/25 04:15 05/09/25 04:30 05/09/25 04:45 Temperature Temperature Source Pulse Rate 84 92 H 74 Pulse Rate [Left] Respiratory Rate Blood Pressure 140/92 H 128/81 123/77 Blood Pressure [Right Arm] Blood Pressure Mean Blood Pressure Mean [Right Arm] Blood Pressure Source [Right Arm] 02 Sat by Pulse Oximetry 96 94 L 93 L Oxygen Delivery Method 05/09/25 05:00 05/09/25 05:15 05/09/25 06:15 Temperature Temperature Source Pulse Rate 79 78 74 Pulse Rate [Left] Respiratory Rate Blood Pressure 139/93 H 159/105 H 135/87 Blood Pressure [Right Arm] Blood Pressure Mean Blood Pressure Mean [Right Arm] Blood Pressure Source [Right Arm] 02 Sat by Pulse Oximetry 95 91 L 94 L Oxygen Delivery Method 05/09/25 06:45 05/09/25 07:03 05/09/25 07:15 Temperature Temperature Source Pulse Rate 82 73 86 Pulse Rate [Left] Respiratory Rate Blood Pressure 144/100 H 158/109 H 157/97 H Blood Pressure [Right Arm] Blood Pressure Mean Blood Pressure Mean [Right Arm] Blood Pressure Source [Right Arm] 02 Sat by Pulse Oximetry 95 98 95 Oxygen Delivery Method 05/09/25 07:30 Temperature Temperature Source Pulse Rate 75 Pulse Rate [Left] Respiratory Rate Blood Pressure 155/96 H Blood Pressure [Right Arm] Blood Pressure Mean Blood Pressure Mean [Right Arm] Blood Pressure Source [Right Arm] 02 Sat by Pulse Oximetry 96 Oxygen Delivery Method Lab Data Lab Results 05/09/25 02:25: PT 11.1, INR 1.00, Magnesium 1.9, Monoscreen Negative 05/09/25 02:26: WBC 9.6, RBC 5.45, Hgb 16.2, Hct 47.1, MCV 86.4, MCH 29.7, MCHC 34.4, RDW 13.1, Plt Count 327, MPV 10.1, Neut % (Auto) 48.9, Lymph % (Auto) 41.0, [place] % (Auto) 9.2, Eos % (Auto) 0.2, Baso % (Auto) 0.5, Neut # (Auto) 4.7, Lymph # (Auto) 4.0, [place] # (Auto) 0.9, Eos # (Auto) 0.0, Baso # (Auto) 0.1, Sodium 141, Potassium 3.7, Chloride 103, Carbon Dioxide 21 L, Anion Gap 20.7 H, BUN 12, Creatinine 1.10, Estimated GFR 83, Est GFR ( Amer) 100, Glucose 137 H, Calcium 9.4, Total Bilirubin 0.6, AST 123 H, ALT 363 H*, Alkaline Phosphatase 97, Total Creatine Kinase 124, Total Protein 8.0, Albumin 4.8, Globulin 3.2, Albumin/Globulin Ratio 1.5, Lipase 161, Salicylates < 1.0 L, Urine Opiates Screen Negative, Urine Methadone Screen Negative, Acetaminophen 41 H, Ur Barbituates Screen Negative, Ur Phencyclidine Scrn Negative, Ur Amphetamines Screen Negative, U Benzodiazepines Scrn Negative, Urine Cocaine Screen Negative, U Marijuana (THC) Screen Positive H, Plasma/Serum Alcohol < 10 05/09/25 03:28: Lactate 3.6 H 05/09/25 06:03: Sodium 143, Potassium 4.2, Chloride 109 H, Carbon Dioxide 22, A nion Gap 16.2 H, BUN 11, Creatinine 1.00, Estimated Creat Clear 177, Estimated GFR 93, Est GFR ( Amer) 112, Glucose 105 H D, Calcium 9.3, Total Bilirubin 0.6, AST 99 H, ALT 290 H, Alkaline Phosphatase 98, Total Protein 7.2, Albumin 4.5, Globulin 2.7, Albumin/Globulin Ratio 1.7, Acetaminophen 19 05/09/25 07:00: Urine Color Yellow, Urine Appearance Sl cloudy, Urine pH 6.0, Ur Specific Todd >= 1.030, Urine Protein 2+ A, Urine Glucose (UA) Negative, Urine Ketones Negative, Urine Blood 2+ A, Urine Nitrate Negative, Urine Bilirubin Negative, Urine Urobilinogen 1.0, Ur Leukocyte Esterase Negative, Urine RBC 5-10, Urine WBC None, Ur Squamous Epith Cells 20-50, Urine Bacteria 1+ 05/09/25 02:26 05/09/25 06:03 Orders (Tests/Meds): ED MEDICATIONS Discontinued Medications Generic Name Dose Route Start Last Admin Trade Name Get PRN Reason Stop Dose Admin Charcoal/Sorbitol 50 gm 05/09/25 02:56 05/09/25 03:01 Charcoal Activated 50gm (240ml) Tube PO 05/09/25 02:57 50 gm ONCE ONE Administration Lactated Ringer's 1,000 mls @ 999 mls/hr 05/09/25 02:24 05/09/25 04:00 Lactated Ringer's 1000 Ml Bag IV 05/09/25 03:24 Infused .Q1H1M ONE Infusion ORDERS Category Date Time Status Acetaminophen Stat Lab 05/09/25 02:26 Completed Acetaminophen Timed Lab 05/09/25 06:03 Completed CBC w/Auto Diff [Complete Blood Count Auto Diff] Stat Lab 05/09/25 02:26 Completed CK [Creatine Kinase] Stat Lab 05/09/25 02:26 Completed CMP [Comprehensive Metabolic Panel] Stat Lab 05/09/25 02:26 Completed CMP [Comprehensive Metabolic Panel] Stat Lab 05/09/25 06:03 Completed Ethanol [Ethyl Alcohol] Stat Lab 05/09/25 02:26 Completed Lactic Acid Stat Lab 05/09/25 03:28 Completed Lipase Stat Lab 05/09/25 02:26 Completed Magnesium Stat Lab 05/09/25 02:25 Completed Monoscreen (Rapid) Stat Lab 05/09/25 02:25 Completed PT INR [Prothrombin Time INR] Stat Lab 05/09/25 02:25 Completed Salicylate Stat Lab 05/09/25 02:26 Completed UDS [Drug Screen,Urine] Stat Lab 05/09/25 02:26 Completed Urinalysis and Microscopic Stat Lab 05/09/25 07:00 Completed Medical Decision Narrative: In summary, this 25-year-old male with comorbidities described in the HPI presents to the emergency department today with suicidal ideation and attempt with ingestion of 3500 mg of Tylenol. On initial evaluation patient is alert, oriented, ambulatory into the ER with EMS, GCS 15, no neurologic deficits, benign cardiopulmonary exam, abdominal exam benign despite the patient reporting left upper quadrant chronic discomfort. No peripheral edema, no evidence of self-harm elsewhere. Patient reports continued suicidal ideation. No other complaints or concerns. Differential diagnosis includes but is not limited to suicidal ideation and attempt, Tylenol overdose, coingestion, patient has a history of transaminitis so this is also on my differential, considered the possibility of mononucleosis with left upper quadrant pain and previously known transaminitis, considered UTI, alcohol intoxication, among others. Based on these concerns, I ordered hematologic and serum labs, acetaminophen, salicylate, ethanol levels, UDS, urinalysis, PT/INR, lipase, lactic, CK, EKG. ECG personally interpreted demonstrates sinus rhythm, rate 84, normal axis, normal DE and QTc, no ischemic changes, no STEMI, does have voltage criteria for LVH. Unchanged from previous Patient received IV fluids initially for treatment. Labs personally reviewed demonstrate normal CBC, CMP with anion gap elevated, good kidney function, patient has persistent transaminitis with AST and ALT elevated similar to 1 week ago, normal bilirubin, CK normal at 124, lipase normal at 161, UDS positive for THC but negative for all other analytes. Initial acetaminophen level 41 less than 1 hour after ingestion. Salicylates undetectably low. Poison control was contacted and SIMRAN Delacruz initially spoke with SIMRAN Prieto at poison control who agrees with workup but also recommends to add on magnesium. She also recommends given the timing of ingestion that patient received 50 g of oral activated charcoal. This is being administered. I also spoke with SIMRAN Prieto and she recommends 4-hour Tylenol level be drawn (this would be at 6 AM) to assess for the potential need for treatment based on Dacia Hess nomogram. Additionally she recommends clinical monitoring for 6 to 8 hours to see if patient potentially had other coingestions for which we cannot test and if he has any symptomatic changes. I appreciate her recommendations. We will follow- up with poison control with additional results. Patient tolerated the activated charcoal well. Additional labs reviewed demonstrate normal magnesium, mono negative. Patient placed into ED observation at 0400 for continued labs and symptomatic monitoring at the recommendation of poison control. Patient remains on the front desk monitor, he is under one-to-one observation which was initiated at the time of arrival due to his suicidal thoughts. He has been frequently reassessed. Acetaminophen level at 4 hours postingestion is down to 19. Patient is well below the treatment threshold for acetaminophen toxicity. His anion gap is also closed and his LFTs are improved after having received IV fluids. Poison control updated by SIMRAN Delacruz. They do not recommend further acetaminophen trending or treatment. He remains hemodynamically stable and well- appearing. He continues to be in ED observation at this time per previous poison control recommendations. Patient handed off to Dr. Penn in stable condition for further management and disposition. <Samia Penn MD - Last Filed: 05/09/25 07:41> Vital Signs: 05/09/25 02:55 05/09/25 03:11 05/09/25 03:15 Temperature 98.1 F Temperature Source Oral Pulse Rate 80 92 H Pulse Rate [Left] 96 H Respiratory Rate 16 Blood Pressure 143/87 H 135/97 H Blood Pressure [Right Arm] 135/97 H Blood Pressure Mean Blood Pressure Mean [Right Arm] 109 Blood Pressure Source [Right Arm] Automatic Cuff 02 Sat by Pulse Oximetry 98 98 96 Oxygen Delivery Method Room Air 05/09/25 03:30 05/09/25 03:45 05/09/25 04:00 Temperature Temperature Source Pulse Rate 79 81 Pulse Rate [Left] Respiratory Rate Blood Pressure 139/91 H 134/88 145/90 H Blood Pressure [Right Arm] Blood Pressure Mean 99 Blood Pressure Mean [Right Arm] Blood Pressure Source [Right Arm] 02 Sat by Pulse Oximetry 96 95 Oxygen Delivery Method 05/09/25 04:15 05/09/25 04:30 05/09/25 04:45 Temperature Temperature Source Pulse Rate 84 92 H 74 Pulse Rate [Left] Respiratory Rate Blood Pressure 140/92 H 128/81 123/77 Blood Pressure [Right Arm] Blood Pressure Mean Blood Pressure Mean [Right Arm] Blood Pressure Source [Right Arm] 02 Sat by Pulse Oximetry 96 94 L 93 L Oxygen Delivery Method 05/09/25 05:00 05/09/25 05:15 05/09/25 06:15 Temperature Temperature Source Pulse Rate 79 78 74 Pulse Rate [Left] Respiratory Rate Blood Pressure 139/93 H 159/105 H 135/87 Blood Pressure [Right Arm] Blood Pressure Mean Blood Pressure Mean [Right Arm] Blood Pressure Source [Right Arm] 02 Sat by Pulse Oximetry 95 91 L 94 L Oxygen Delivery Method 05/09/25 06:45 05/09/25 07:03 05/09/25 07:15 Temperature Temperature Source Pulse Rate 82 73 86 Pulse Rate [Left] Respiratory Rate Blood Pressure 144/100 H 158/109 H 157/97 H Blood Pressure [Right Arm] Blood Pressure Mean Blood Pressure Mean [Right Arm] Blood Pressure Source [Right Arm] 02 Sat by Pulse Oximetry 95 98 95 Oxygen Delivery Method 05/09/25 07:30 Temperature Temperature Source Pulse Rate 75 Pulse Rate [Left] Respiratory Rate Blood Pressure 155/96 H Blood Pressure [Right Arm] Blood Pressure Mean Blood Pressure Mean [Right Arm] Blood Pressure Source [Right Arm] 02 Sat by Pulse Oximetry 96 Oxygen Delivery Method Lab Data Lab Results 05/09/25 02:25: PT 11.1, INR 1.00, Magnesium 1.9, Monoscreen Negative 05/09/25 02:26: WBC 9.6, RBC 5.45, Hgb 16.2, Hct 47.1, MCV 86.4, MCH 29.7, MCHC 34.4, RDW 13.1, Plt Count 327, MPV 10.1, Neut % (Auto) 48.9, Lymph % (Auto) 41.0, [place] % (Auto) 9.2, Eos % (Auto) 0.2, Baso % (Auto) 0.5, Neut # (Auto) 4.7, Lymph # (Auto) 4.0, [place] # (Auto) 0.9, Eos # (Auto) 0.0, Baso # (Auto) 0.1, Sodium 141, Potassium 3.7, Chloride 103, Carbon Dioxide 21 L, Anion Gap 20.7 H, BUN 12, Creatinine 1.10, Estimated GFR 83, Est GFR ( Amer) 100, Glucose 137 H, Calcium 9.4, Total Bilirubin 0.6, AST 123 H, ALT 363 H*, Alkaline Phosphatase 97, Total Creatine Kinase 124, Total Protein 8.0, Albumin 4.8, Globulin 3.2, Albumin/Globulin Ratio 1.5, Lipase 161, Salicylates < 1.0 L, Urine Opiates Screen Negative, Urine Methadone Screen Negative, Acetaminophen 41 H, Ur Barbituates Screen Negative, Ur Phencyclidine Scrn Negative, Ur Amphetamines Screen Negative, U Benzodiazepines Scrn Negative, Urine Cocaine Screen Negative, U Marijuana (THC) Screen Positive H, Plasma/Serum Alcohol < 10 05/09/25 03:28: Lactate 3.6 H 05/09/25 06:03: Sodium 143, Potassium 4.2, Chloride 109 H, Carbon Dioxide 22, A nion Gap 16.2 H, BUN 11, Creatinine 1.00, Estimated Creat Clear 177, Estimated GFR 93, Est GFR ( Amer) 112, Glucose 105 H D, Calcium 9.3, Total Bilirubin 0.6, AST 99 H, ALT 290 H, Alkaline Phosphatase 98, Total Protein 7.2, Albumin 4.5, Globulin 2.7, Albumin/Globulin Ratio 1.7, Acetaminophen 19 05/09/25 07:00: Urine Color Yellow, Urine Appearance Sl cloudy, Urine pH 6.0, Ur Specific Todd >= 1.030, Urine Protein 2+ A, Urine Glucose (UA) Negative, Urine Ketones Negative, Urine Blood 2+ A, Urine Nitrate Negative, Urine Bilirubin Negative, Urine Urobilinogen 1.0, Ur Leukocyte Esterase Negative, Urine RBC 5-10, Urine WBC None, Ur Squamous Epith Cells 20-50, Urine Bacteria 1+ Orders (Tests/Meds): ED MEDICATIONS Discontinued Medications Generic Name Dose Route Start Last Admin Trade Name Freq PRN Reason Stop Dose Admin Charcoal/Sorbitol 50 gm 05/09/25 02:56 05/09/25 03:01 Charcoal Activated 50gm (240ml) Tube PO 05/09/25 02:57 50 gm ONCE ONE Administration Lactated Ringer's 1,000 mls @ 999 mls/hr 05/09/25 02:24 05/09/25 04:00 Lactated Ringer's 1000 Ml Bag IV 05/09/25 03:24 Infused .Q1H1M ONE Infusion ORDERS Category Date Time Status Acetaminophen Stat Lab 05/09/25 02:26 Completed Acetaminophen Timed Lab 05/09/25 06:03 Completed CBC w/Auto Diff [Complete Blood Count Auto Diff] Stat Lab 05/09/25 02:26 Completed CK [Creatine Kinase] Stat Lab 05/09/25 02:26 Completed CMP [Comprehensive Metabolic Panel] Stat Lab 05/09/25 02:26 Completed CMP [Comprehensive Metabolic Panel] Stat Lab 05/09/25 06:03 Completed Ethanol [Ethyl Alcohol] Stat Lab 05/09/25 02:26 Completed Lactic Acid Stat Lab 05/09/25 03:28 Completed Lipase Stat Lab 05/09/25 02:26 Completed Magnesium Stat Lab 05/09/25 02:25 Completed Monoscreen (Rapid) Stat Lab 05/09/25 02:25 Completed PT INR [Prothrombin Time INR] Stat Lab 05/09/25 02:25 Completed Salicylate Stat Lab 05/09/25 02:26 Completed UDS [Drug Screen,Urine] Stat Lab 05/09/25 02:26 Completed Urinalysis and Microscopic Stat Lab 05/09/25 07:00 Completed Medical Decision Narrative: In summary, this 25-year-old male with comorbidities described in the HPI presents to the emergency department today with suicidal ideation and attempt with ingestion of 3500 mg of Tylenol. On initial evaluation patient is alert, oriented, ambulatory into the ER with EMS, GCS 15, no neurologic deficits, benign cardiopulmonary exam, abdominal exam benign despite the patient reporting left upper quadrant chronic discomfort. No peripheral edema, no evidence of self-harm elsewhere. Patient reports continued suicidal ideation. No other complaints or concerns. Differential diagnosis includes but is not limited to suicidal ideation and attempt, Tylenol overdose, coingestion, patient has a history of transaminitis so this is also on my differential, considered the possibility of mononucleosis with left upper quadrant pain and previously known transaminitis, considered UTI, alcohol intoxication, among others. Based on these concerns, I ordered hematologic and serum labs, acetaminophen, salicylate, ethanol levels, UDS, urinalysis, PT/INR, lipase, lactic, CK, EKG. ECG personally interpreted demonstrates sinus rhythm, rate 84, normal axis, normal DE and QTc, no ischemic changes, no STEMI, does have voltage criteria for LVH. Unchanged from previous Patient received IV fluids initially for treatment. Labs personally reviewed demonstrate normal CBC, CMP with anion gap elevated, good kidney function, patient has persistent transaminitis with AST and ALT elevated similar to 1 week ago, normal bilirubin, CK normal at 124, lipase normal at 161, UDS positive for THC but negative for all other analytes. Initial acetaminophen level 41 less than 1 hour after ingestion. Salicylates undetectably low. Poison control was contacted and SIMRAN Delacruz initially spoke with SIMRAN Prieto at poison control who agrees with workup but also recommends to add on magnesium. She also recommends given the timing of ingestion that patient received 50 g of oral activated charcoal. This is being administered. I also spoke with SIMRAN Prieto and she recommends 4-hour Tylenol level be drawn (this would be at 6 AM) to assess for the potential need for treatment based on Dacia Hess nomogram. Additionally she recommends clinical monitoring for 6 to 8 hours to see if patient potentially had other coingestions for which we cannot test and if he has any symptomatic changes. I appreciate her recommendations. We will follow- up with poison control with additional results. Patient tolerated the activated charcoal well. Additional labs reviewed demonstrate normal magnesium, mono negative. Patient placed into ED observation at 0400 for continued labs and symptomatic monitoring at the recommendation of poison control. Patient remains on the front desk monitor, he is under one-to-one observation which was initiated at the time of arrival due to his suicidal thoughts. He has been frequently reassessed. Acetaminophen level at 4 hours postingestion is down to 19. Patient is well below the treatment threshold for acetaminophen toxicity. His anion gap is also closed and his LFTs are improved after having received IV fluids. Poison control updated by SIMRAN Delacruz. They do not recommend further acetaminophen trending or treatment. He remains hemodynamically stable and well- appearing. He continues to be in ED observation at this time per previous poison control recommendations. Patient handed off to Dr. Penn in stable condition for further management and disposition. Accepted transfer of care from Dr. High at 7 AM. After 8-hour observation patient remains hemodynamically stable with no complaints. [facility] to [facility] for SI. Critical Care <Leesa High MD - Last Filed: 05/09/25 07:23> Critical Care Time Critical Care Time: Yes Attestation: On 05/09/25, the high probability of a clinically significant, sudden or life threatening deterioration of the following system(s) required my full and direct attention, intervention and personal management. The time I documented below is in addition to time spent performing reported procedures but includes the following listed in this critical care notation. Total Time Total Critical Care Time: 35
[2025-05-09 02:50] LABS: Acetaminophen 41 ug/ml (10-30); Alanine Aminotransferase 363 U/L (12-78); Albumin Level 4.8 g/dl (3.5-5.0); Albumin/Globulin Ratio 1.5 (1.1-1.8); Alkaline Phosphatase 97 U/L (38-126); Anion Gap 20.7 mEq/L (5-15); Aspartate Amino Transferase 123 U/L (17-59); Barbiturates Screen,Urine Negative ng/ml (<200); Bilirubin,Total 0.6 mg/dl (0.2-1.3); Blood Urea Nitrogen 12 mg/dl (9-20); Calcium 9.4 mg/dl (8.4-10.2); Carbon Dioxide 21 mmol/L (22.0-30.0); Chloride 103 mmol/L (98-107); Creatinine,Serum 1.10 mg/dl (0.66-1.25); Estimated Glomerular Filt Rate 83 ml/min (>60); GFR (African American) 100 ML/MIN (>60); Globulin 3.2 g/dL (1.3-3.2); Glucose 137 mg/dl (74-100); Potassium 3.7 mmoL/L (3.5-5.1); Sodium 141 mmol/L (136-145); Total Protein,Serum 8.0 g/dl (6.3-8.2)
[2025-05-09 02:51] LABS: Amphetamine/Metha Screen,Urine Negative ng/ml (<1000); Benzodiazepines Screen,Urine Negative ng/ml (<200); Salicylate < 1.0 mg/dL (2.0-20.0)
--- NOTE | 2025-05-09 02:51 | PC.NURSE ---
Called [place] Poison Control center
[2025-05-09 02:52] LABS: Methadone Screen,Urine Negative ng/ml (<300)
[2025-05-09 02:54] LABS: Opiate Screen,Urine Negative ng/ml (<300)
[2025-05-09 02:55] LABS: Phencyclidine Screen,Urine Negative ng/ml (<25)
[2025-05-09] MEDS: CHARCOAL ACTIVATED 50GM (240ML) TUBE 50 GM PO (03:01)
[2025-05-09 03:27] LABS: Magnesium 1.9 mg/dl (1.6-2.3)
[2025-05-09 03:28] LABS: INR 1.00 (0.9-1.1); Prothrombin Time 11.1 seconds (10.1-12.5)
[2025-05-09 03:29] LABS: Monoscreen (Rapid) Negative (Negative)
[2025-05-09 03:34] LABS: Microscopic, Urine URINE MICROSCOPIC (MICROSCOPIC)
[2025-05-09 06:18] LABS: Albumin Level 4.5 g/dl (3.5-5.0); Chloride 109 mmol/L (98-107)
[2025-05-09 06:19] LABS: Potassium 4.2 mmoL/L (3.5-5.1); Sodium 143 mmol/L (136-145)
[2025-05-09 06:21] LABS: Alanine Aminotransferase 290 U/L (12-78); Anion Gap 16.2 mEq/L (5-15); Aspartate Amino Transferase 99 U/L (17-59); Blood Urea Nitrogen 11 mg/dl (9-20); Carbon Dioxide 22 mmol/L (22.0-30.0); Creatinine Clearance Estimated 177 mL/min (50-200); Creatinine,Serum 1.00 mg/dl (0.66-1.25); Estimated Glomerular Filt Rate 93 ml/min (>60); GFR (African American) 112 ML/MIN (>60)
[2025-05-09 06:22] LABS: Acetaminophen 19 ug/ml (10-30); Albumin/Globulin Ratio 1.7 (1.1-1.8); Alkaline Phosphatase 98 U/L (38-126); Bilirubin,Total 0.6 mg/dl (0.2-1.3); Calcium 9.3 mg/dl (8.4-10.2); Globulin 2.7 g/dL (1.3-3.2); Glucose 105 mg/dl (74-100); Total Protein,Serum 7.2 g/dl (6.3-8.2)
--- NOTE | 2025-05-09 06:45 | PC.NURSE ---
Poison Control center contacted for update on new labs. Spoke with Gerry and after reviewing all information he stated they were signing off on the patient and we were good to move forward with psych eval. Dr. High was notified and states she is going to follow the 1st nurse and watch fow full 8 hours before moving forward.
[2025-05-09 07:21] LABS: Bilirubin,Urine Negative (Negative); Color,Urine YELLOW (Yellow); Glucose,Urine (UA) Negative (Negative); Ketones,Urine Negative (Negative); Leukocyte Esterase,Urine Negative (Negative); PH,Urine 6.0 (5.0-8.5); Protein,Urine 2+ (Negative); Specific Gravity, Urine >= 1.030 (1.005-1.030); Urobilinogen,Urine 1.0 EU/dl (0.2)
--- NOTE | 2025-05-09 07:34 | PC.NURSE ---
currently on phone with for pt transfer to [facility] for SI
--- NOTE | 2025-05-09 07:35 | PC.NURSE ---
Dr Penn is on phone with [facility] at this time
[2025-05-09 07:36] LABS: Bacteria,Urine 1+ /lpf; Squamous Epithelial Cell,Urine 20-50 #/hpf (0-5)
--- NOTE | 2025-05-09 07:50 | PC.NURSE ---
[facility] NOTIFIED OF TRANSFER TO [facility]
[2025-05-09 08:05] LABS: Reflex Lactic Add Lactic Reflex
== END 2025-05-09 08:17 ==
PROVIDERS: Emergency Provider Emergency Medicine
DX: T39.1X2A Poisoning by 4-Aminophenol derivatives, intentional self-harm, initial encounter (principal); R74.01 Elevation of levels of liver transaminase levels; R74.02 Elevation of levels of lactic acid dehydrogenase [LDH]
CPT/HCPCS: 80053; 80307; 80320; 80329; 81001; 82550; 83605; 83690; 83735; 85025; 85610; 86318; 93005; 96360; 99285; J7120